=== PATIENT | male | born 1940 | race Caucasian/White ===

== ENCOUNTER 2017-12-17 17:45 | Inpatient (IN) | payer MEDICAID, MEDICARE ==
[~2017-12-17] VITALS: Ht 160 cm; Wt 90.3 kg
[~2017-12-17 17:45] MED LIST: LANTUS INSULIN SQ
[2017-12-17] MEDS ORDERED: DEXTROSE 50% 50 ML DISP.SYRIN ONE ×2 (17:55→18:47)
[2017-12-17] MEDS ORDERED: IV D5W-0.45% NS 1000 ML BAG IV ONE (18:15)
[2017-12-17] MEDS ORDERED: DEXTROSE 5% IV ONE (18:15)
--- NOTE | 2017-12-17 18:24 | NUR ---
upon arrival pt alert to name only, accu check was 42. pt rec'd1amp d50 iv and d5w 1/2ns infusing st 100 ml/hr, pt's daughter at the bedside. pt reconized daughter, denied any pain or discomfort.
[2017-12-17] MEDS ORDERED: DEXTROSE 50% 50 ML DISP.SYRIN IV ONE ×2 (18:30→19:00)
--- NOTE | 2017-12-17 18:50 | NUR ---
Pt's sister arrived and provided further information about pt's hx and home medications. Pt's record updated accordingly. Per sister pt was recently d/c from [facility] with dx of pneumonia.
--- NOTE | 2017-12-17 18:55 | NUR ---
pt to ct scan, 2nd accu check was 49, dr anaya was notified and 2nd amp d50 iv administered.
[2017-12-17] MEDS ORDERED: TRAMADOL (18:56)
[2017-12-17] MEDS ORDERED: FLOMAX PO (18:56)
[2017-12-17] MEDS ORDERED: FUROSEMIDE PO (18:56)
[2017-12-17] MEDS ORDERED: NORCO (18:56)
[2017-12-17] MEDS ORDERED: KEPPRA PO (18:56)
[2017-12-17] MEDS ORDERED: NOVOLOG INSULIN SQ (18:56)
[2017-12-17 19:08] LABS: BASOPHILS # (AUTO) 0.1 K/uL (0.0-8.0); BASOPHILS % (AUTO) 0.5 % (0.0-2.0); EOSINOPHILS % (AUTO) 0.3 % (0.0-7.0); HEMATOCRIT 24.8 % (36.7-47.1); LYMPHOCYTES # (AUTO) 1.2 K/uL (20.0-40.0); LYMPHOCYTES % (AUTO) 9.1 % (20.5-51.5); MEAN CORPUSCULAR HEMOGLOBIN 26.9 uug (23.8-33.4); MEAN CORPUSCULAR HGB CONC 32 g/dL (32.5-36.3); MEAN CORPUSCULAR VOLUME 83.3 fL (73.0-96.2); MONOCYTES # (AUTO) 1.4 K/uL (2.0-10.0); MONOCYTES % (AUTO) 10.3 % (0.0-11.0); NEUTROPHILS # (AUTO) 10.8 K/uL (1.8-8.9); NEUTROPHILS % (AUTO) 79.8 % (38.5-71.5); PLATELET COUNT (AUTO) 348 K/uL (152-348); RED BLOOD CELL COUNT(AUTO) 2.97 MIL/uL (4.06-5.63); WHITE BLOOD COUNT (AUTO) 13.6 K/uL (3.6-10.2)
--- NOTE | 2017-12-17 19:11 | NUR ---
Assumed care of patient. Patient in bed, VSS. No acute distress noted.
[2017-12-17 19:13] LABS: ETHANOL < 3 MG/DL (0-0)
--- NOTE | 2017-12-17 19:13 | NUR ---
sbar report to gracia rn , pt still at ct scan.
--- NOTE | 2017-12-17 19:19 | NUR ---
Patient back from CT. No acute distress at this time.
[2017-12-17 19:24] LABS: CARBON DIOXIDE 23 mmol/L (21-32); CHLORIDE 105 mmol/L (98-107); CREATININE 2.5 mg/dL (0.6-1.3); POTASSIUM 4.1 mmol/L (3.5-5.1); UREA NITROGEN, BLOOD 53 mg/dL (7-18)
[2017-12-17 19:26] LABS: GLUCOSE 45 mg/dL (74-106); THYROID STIMULATING HORMONE 2.727 mIU/mL (0.358-3.740)
[2017-12-17 19:28] LABS: ALANINE AMINOTRANSFERASE 58 U/L (16-63); ALKALINE PHOSPHATASE 133 U/L (50-136); ASPARTATE AMINOTRANSFERASE 45 U/L (15-37); BILIRUBIN,DIRECT 0.1 mg/dL (0.0-0.2); BILIRUBIN,TOTAL 0.2 mg/dL (0.2-1.0); TOTAL PROTEIN, SERUM 6.1 g/dL (6.4-8.2)
[2017-12-17 19:29] LABS: ACETAMINOPHEN < 2.0 ug/mL (10-30)
[2017-12-17] MEDS ORDERED: ALBUTEROL SULFATE 2.5 MG/3 ML NEBU NEB ONE (20:00)
--- NOTE | 2017-12-17 20:08 | NUR ---
Patient in bed, able to make needs known. Cleared for PO intake by ER MD. Patient pending inpatient admission at this time.
--- NOTE | 2017-12-17 20:11 | NUR ---
Panel call placed to [employer].
--- NOTE | 2017-12-17 20:13 | NUR ---
FELIPE HILL speaking with Dr Boucher at this time.
--- NOTE | 2017-12-17 20:15 | NUR ---
Patient tolerated PO intake at this time.
--- NOTE | 2017-12-17 20:28 | NUR ---
Report given to Vaishnavi JENKINS
--- NOTE | 2017-12-17 20:32 | NUR ---
Pt. admitted to Telemetry , under care of Dr. Boucher. Dx: Hypoglycemia Belongs List completed
[2017-12-17 20:45] VITALS: BP 201/100
--- NOTE | 2017-12-17 20:55 | NUR ---
NEW ADMIT FROM ER, ADMITTED FOR HYPOGLYCEMIA, AWAITING ADMIT ORDERS
[2017-12-17 21:00] VITALS: BP 185/94
[2017-12-17] MEDS ORDERED: MIRALAX 17 GM POWD.PACK PO PRN (23:00)
[2017-12-17] MEDS ORDERED: TRAMADOL HCL 50 MG TABLET PO PRN (23:00)
[2017-12-17] MEDS ORDERED: IV D5 1/2 NS 1000 ML 1,000 ML IV PRN (23:00)
[2017-12-17] MEDS: LEVOFLOXACIN 250MG /D5W 250 MG in PREMIXED 1 EACH IV SCH (23:00)
[2017-12-17] MEDS ORDERED: NITROGLYCERIN OINT 1 GM PACKET TP PRN (23:00)
[2017-12-17] MEDS ORDERED: ONDANSETRON 4 MG/2 ML VIAL IV PRN (23:00)
[2017-12-17] MEDS ORDERED: INSULIN REGULAR, HUMAN 300 UNIT/3 ML VIAL SQ PRN (23:30)
[2017-12-17] MEDS ORDERED: DEXTROSE 50% 50 ML DISP.SYRIN IV PRN (23:30)
[2017-12-18] VITALS (11 sets, daily range): BP systolic 133–208; BP diastolic 64–94
[2017-12-18] MEDS: AMLODIPINE 5 MG TABLET PO SCH ×3 (00:04→21:10)
[2017-12-18] MEDS: TAMSULOSIN HCL 0.4 MG CAP.SR.24H PO SCH ×2 (00:04→21:10)
[2017-12-18] MEDS: hydrALAZINE HCL 50 MG TABLET PO SCH ×3 (00:05→21:12)
[2017-12-18] MEDS: BLOOD SUGAR DIAGNOSTIC 1 EACH STRIP VI SCH ×9 (00:11→23:09)
[2017-12-18] MEDS ORDERED: ALBUTEROL SULFATE 2.5 MG/3 ML NEBU ONE (00:22)
[2017-12-18] MEDS ORDERED: LEVOFLOXACIN 250MG /D5W 50 ML IV ONE (00:22)
[2017-12-18] MEDS ORDERED: IPRATROPIUM BROMIDE 0.5 MG/2.5 ML NEBU ONE (00:22)
[2017-12-18] MEDS: IPRATROPIUM BROMIDE 0.5 MG/2.5 ML NEBU NEB PRN ×2 (00:46→08:12)
[2017-12-18] MEDS: ALBUTEROL SULFATE 2.5 MG/3 ML NEBU NEB PRN ×2 (00:46→08:12)
--- NOTE | 2017-12-18 01:00 | NUR ---
BP ELEVATED AT 208/94, BP MEDS WERE GIVEN ORDERED. BP NOW DOWN TO 170/87, WILL CONTINUE TO MONITOR BP
[2017-12-18] MEDS: LORAZEPAM 2 MG/1 ML VIAL IV PRN ×2 (04:12→16:25)
[2017-12-18] MEDS ORDERED: CLONIDINE HCL 0.1 MG TABLET PO PRN (04:15)
[2017-12-18] MEDS: MORPHINE SULFATE 4 MG/1 ML DISP.SYRIN IV PRN ×3 (04:21→16:34)
--- NOTE | 2017-12-18 05:49 | NUR ---
PATIENT'S BP CONTINUES TO BE ELEVATED. MD HARDY GAVE A PRN ORDER FOR CLONIDINE. BP WAS 183/92 WENT DOWN TO 179/97 AFTER PRN MEDS. CALLED DR HARDY REGARDING UNCONTROLLED BP. AWAITING FOR A RESPONSE
[2017-12-18] MEDS ORDERED: methylPREDNISolone SOD SUCC 40 MG/ML VIAL IV SCH (06:00)
[2017-12-18] MEDS: PANTOPRAZOLE SODIUM 40 MG TABLET.DR PO SCH (06:17)
[2017-12-18 06:50] LABS: BASOPHILS % (AUTO) 0.4 % (0.0-2.0); EOSINOPHILS # (AUTO) 0.2 K/uL (0.0-0.7); EOSINOPHILS % (AUTO) 1.5 % (0.0-7.0); HEMATOCRIT 23.9 % (36.7-47.1); HEMOGLOBIN 7.6 g/dL (12.5-16.3); LYMPHOCYTES % (AUTO) 16.8 % (20.5-51.5); MEAN CORPUSCULAR HEMOGLOBIN 26.3 uug (23.8-33.4); MEAN CORPUSCULAR HGB CONC 32 g/dL (32.5-36.3); MONOCYTES # (AUTO) 1.2 K/uL (2.0-10.0); MONOCYTES % (AUTO) 9.8 % (0.0-11.0); NEUTROPHILS # (AUTO) 8.4 K/uL (1.8-8.9); NEUTROPHILS % (AUTO) 71.5 % (38.5-71.5); PLATELET COUNT (AUTO) 324 K/uL (152-348); RED BLOOD CELL COUNT(AUTO) 2.88 MIL/uL (4.06-5.63); WHITE BLOOD COUNT (AUTO) 11.8 K/uL (3.6-10.2)
--- NOTE | 2017-12-18 06:59 | NUR ---
MD HARDY GAVE NEW ORDER FOR CLONIDINE ONCE, NEW ORDERS ENDORSED TO NEXT SHIFT
[2017-12-18] MEDS ORDERED: CLONIDINE HCL 0.1 MG TABLET PO ONE (07:00)
--- NOTE | 2017-12-18 07:00 | NUR ---
Received report from shift production supervisor nurse, patient in bed, minimally responsive, BP elevated, and Dr. Corado had just returned a all for one time order or clonidine. Will continue to monitor blood pressure. Patient is in bed, bed in low position, side rails up x2. bed alarm on.
[2017-12-18 07:59] LABS: IRON, SERUM 40 ug/dL (50-175)
[2017-12-18 08:01] LABS: ALANINE AMINOTRANSFERASE 47 U/L (16-63); ALKALINE PHOSPHATASE 115 U/L (50-136); ASPARTATE AMINOTRANSFERASE 33 U/L (15-37); BILIRUBIN,TOTAL 0.2 mg/dL (0.2-1.0); CARBON DIOXIDE 23 mmol/L (21-32); CHLORIDE 105 mmol/L (98-107); CHOLESTEROL 149 mg/dL (<200); CREATININE 2.5 mg/dL (0.6-1.3); GLUCOSE 105 mg/dL (74-106); HDL CHOLESTEROL 65 mg/dL (40-60); POTASSIUM 4.7 mmol/L (3.5-5.1); TOTAL PROTEIN, SERUM 5.6 g/dL (6.4-8.2); TRIGLYCERIDES 90 MG/DL (30-150); UREA NITROGEN, BLOOD 50 mg/dL (7-18)
[2017-12-18 08:20] LABS: MAGNESIUM 1.2 mg/dL (1.8-2.4)
--- NOTE | 2017-12-18 08:28 | NUR ---
CONTACTED DR GEORGE [facility]IA [facility] FOR CRITICAL LAB RESULTS AWAITING CALL BACK
[2017-12-18] MEDS: LEVETIRACETAM IV 500 MG in IV DEXTROSE 5% 100 ML IV SCH ×2 (08:34→21:12)
[2017-12-18] MEDS ORDERED: LEVE500T9 PO (10:42)
[2017-12-18] MEDS ORDERED: INSU3INS6 SQ (10:42)
[2017-12-18] MEDS ORDERED: TAMS-3 PO (10:42)
[2017-12-18] MEDS ORDERED: FURO-152 PO (10:42)
[2017-12-18] MEDS ORDERED: LEVO500T90 PO (10:44)
[2017-12-18] MEDS ORDERED: CLON0.1T PO (10:44)
[2017-12-18] MEDS ORDERED: GABA-534 PO (10:44)
[2017-12-18] MEDS ORDERED: HYDR100T27 PO (10:44)
[2017-12-18] MEDS ORDERED: METO50TA16 PO (10:44)
[2017-12-18] MEDS ORDERED: PANT40TA2 PO (10:44)
[2017-12-18] MEDS: MAGNESIUM SULFATE/D5W 100 ML IV SCH ×2 (10:57→11:47)
[2017-12-18] MEDS ORDERED: FUROSEMIDE 20 MG/2 ML VIAL IV SCH (11:15)
[2017-12-18 11:26] LABS: ABG BASE EXCESS -5.9 mmol/L; ABG HCO3 18.6 mmol/L; ABG PCO2 32.6 mmHg (35.0-45.0); ABG PH 7.375 (7.350-7.450); ABG PO2 100.3 mmHg (75.0-100.0); ABG SITE RIGHT RADIAL; ABG TOTAL HEMOGLOBIN 8.2 G/dL (13.5-18.0); COHb 1.2 % (0.5-1.5); MetHb 0.4 % (0.0-1.5); O2Hb 96.3 % (94.0-97.0); VENT MODE Nasal Cannula
[2017-12-18] MEDS ORDERED: TRAM50TA2 PO (11:39)
[2017-12-18] MEDS ORDERED: MONT10TA25 PO (11:40)
[2017-12-18] MEDS ORDERED: HYDR-552 PO (11:42)
[2017-12-18] MEDS ORDERED: BUDE10.2 INH (11:43)
[2017-12-18] MEDS ORDERED: INSU100C4 SQ (11:45)
[2017-12-18] MEDS ORDERED: CLONIDINE HCL 0.1 MG TABLET PO SCH (13:00)
[2017-12-18 13:13] LABS: *BILIRUBIN,URIN NEGATIVE (NEGATIVE); *BLOOD, URINE 2+ (NEGATIVE); *CLARITY,URINE CLEAR (CLEAR); *COLOR,URINE YELLOW (YELLOW); *KETONES,URINE NEGATIVE (NEGATIVE); *UROBILINOGEN,URINE 0.2 E.U./dl (NORMAL); LEUKOCYTE ESTERASE ,URINE NEGATIVE (NEGATIVE); NITRITE, URINE NEGATIVE (NEGATIVE); UGLUCOSE TRACE (NEGATIVE)
[2017-12-18 13:23] LABS: *CREATININE,URINE 35.5 mg/dL (30-125)
[2017-12-18 13:28] LABS: *PROTEIN,URINE 3+ (NEGATIVE)
[2017-12-18 13:29] LABS: RBC,URINE TNTC /HPF (0-3)
[2017-12-18 13:30] LABS: BACTERIA,URINE NONE SEEN /HPF (NONE SEEN); SQUAMOUS EPITHELIAL CELL,UR FEW /HPF (NONE SEEN); TRANSITIONAL EPI CELLS,URINE FEW /LPF (NONE SEEN)
[2017-12-18 13:44] LABS: *OCCULT BLOOD STOOL POSITIVE (NEGATIVE)
--- NOTE | 2017-12-18 13:46 | NUR ---
TEXTED DR. HSU FOR MRI APPROVAL.
[2017-12-18] MEDS ORDERED: hydrALAZINE HCL 50 MG TABLET PO SCH (14:00)
[2017-12-18] MEDS: CLONIDINE HCL 0.1 MG TABLET PO SCH ×2 (14:06→22:57)
[2017-12-18] MEDS: GABAPENTIN 300 MG CAPSULE PO SCH ×2 (14:06→16:25)
[2017-12-18] MEDS ORDERED: METOPROLOL TARTRATE 50 MG TABLET PO SCH (17:00)
--- NOTE | 2017-12-18 17:00 | NUR ---
Contacted Amy Maxwell NP about glucose level, and received order for insulin sliding scale and q6hr glucose checks.
[2017-12-18] MEDS ORDERED: DEXTROSE 50% 50 ML DISP.SYRIN IV PRN (17:30)
[2017-12-18] MEDS: INSULIN REGULAR, HUMAN 300 UNIT/3 ML VIAL SQ PRN (18:13)
[2017-12-18] MEDS: ALBUTEROL SULFATE 2.5 MG/3 ML NEBU NEB SCH (19:21)
[2017-12-18] MEDS: IPRATROPIUM BROMIDE 0.5 MG/2.5 ML NEBU NEB SCH (19:22)
--- NOTE | 2017-12-18 19:30 | NUR ---
PT RECEIVED IN BED, AWAKE. DAUGHTER AT BEDSIDE. A/OX2. URDU SPEAKING, BUT ABLE TO MAKE NEEDS KNOWN. V/S STABLE. IN NO ACUTE DISTRESS. NO C/O PAIN AT THIS TIME. IV INTACT AND PATENT, HEPLOCKED. ON 4LNC, PT NOTED TO BE HAVING DIFFICULTY BREATHING. SOB UPON INHALATION. STRIDOR HEARD ON AUSCULTATION. RESPIRATORY CONFIRMED, DIRECTOR OF FEDERAL SALES AMELIA SANTANA NOTIFIED. PT SEEN WITH LOW GRADE FEVER 99.4F. HUIZAR INTACT AND PATENT. COOLING MEASURES INITIATED, BLANKETS REMOVED, ROOM TEMP DECREASED. HOB ELEVATED. SAFETY MEASURES IMPLEMENTED. BED ALARM SET. CALL LIGHT WITHIN REACH
[2017-12-18] MEDS ORDERED: RACEPINEPHRINE HCL 2.25% 0.5 ML NEBU NEB PRN (20:00)
[2017-12-18] MEDS: DOCUSATE SODIUM 100 MG CAPSULE PO SCH (21:09)
[2017-12-18] MEDS: METOPROLOL TARTRATE 50 MG TABLET PO SCH (21:11)
[2017-12-18] MEDS: ACETAMINOPHEN 325 MG TABLET PO PRN (21:12)
[2017-12-18] MEDS: methylPREDNISolone SOD SUCC 40 MG/ML VIAL IV SCH (22:56)
[2017-12-18] MEDS: LEVOFLOXACIN 250MG /D5W 250 MG in PREMIXED 1 EACH IV SCH (22:59)
[2017-12-18] MEDS ORDERED: RACEPINEPHRINE HCL 2.25% 0.5 ML NEBU ONE (23:10)
--- NOTE | 2017-12-18 23:30 | NUR ---
PT RECEIVED RACEPINEPHRINE TX, ORDERED. PT LUNG SOUNDS AUSCULTATED, MILD CRACKLES NOTED. PT USE OF LESS ACCESSORY MUSCLES AT THIS TIME. IN STABLE CONDITION. WILL CONT TO MONITOR.
[2017-12-19] MEDS: ALBUTEROL SULFATE 2.5 MG/3 ML NEBU NEB SCH ×4 (01:09→19:40)
[2017-12-19] MEDS: IPRATROPIUM BROMIDE 0.5 MG/2.5 ML NEBU NEB SCH ×4 (01:09→19:39)
[2017-12-19] MEDS: LORAZEPAM 2 MG/1 ML VIAL IV PRN (01:30)
--- NOTE | 2017-12-19 01:34 | NUR ---
PT INCREASINGLY AGGRESSIVE, ANGRY AND YELLING AT DIRECTOR COMPLIANCE AND RESPIRATORY THERAPIST. ATTEMPTING TO HIT. ATIVAN ADMINISTERED ORDERED. IN STABLE CONDITION. WILL CONT TO MONITOR.
[2017-12-19] MEDS: BLOOD SUGAR DIAGNOSTIC 1 EACH STRIP VI SCH ×6 (04:26→20:35)
--- NOTE | 2017-12-19 04:30 | NUR ---
PT BS 209, IN NO ACUTE DISTRESS. NO ISS PER MD ORDER. WILL CONT TO MONITOR.
[2017-12-19] MEDS: CLONIDINE HCL 0.1 MG TABLET PO SCH ×3 (05:13→21:38)
[2017-12-19] MEDS: methylPREDNISolone SOD SUCC 40 MG/ML VIAL IV SCH ×3 (05:13→21:39)
[2017-12-19] MEDS: INSULIN REGULAR, HUMAN 300 UNIT/3 ML VIAL SQ PRN ×4 (05:16→20:37)
[2017-12-19 05:19] VITALS: BP 141/76
--- NOTE | 2017-12-19 06:16 | NUR ---
END OF SHIFT NOTES. PT SLEPT INTERMITTENTLY THROUGHOUT SHIFT. V/S WNL. IN NO ACUTE DISTRESS. CONT TO SHOW SOME AGITATION WHEN AWAKE. ATTEMPTING TO GET OUT OF BED AND CONFUSED. PT CONT ON 4LNC. TOLERATED BREATHING TX WELL. AT REST PT SHOWS SHALLOW BREATHING BUT STABLE. BLOOD SUGAR CONTROLLED. ALL IV ABX INFUSED. HUIZAR INTACT AND PATENT, DRAINING WELL. HOB ELEVATED. ALL NEEDS ATTENDED. SAFETY MAINTAINED. CALL LIGHT WITHIN REACH.
[2017-12-19] MEDS: PANTOPRAZOLE SODIUM 40 MG TABLET.DR PO SCH (06:25)
[2017-12-19 07:06] LABS: BASOPHILS % (AUTO) 0.1 % (0.0-2.0); HEMATOCRIT 23.1 % (36.7-47.1); HEMOGLOBIN 7.5 g/dL (12.5-16.3); LYMPHOCYTES # (AUTO) 0.4 K/uL (20.0-40.0); LYMPHOCYTES % (AUTO) 3.4 % (20.5-51.5); MEAN CORPUSCULAR HEMOGLOBIN 26.7 uug (23.8-33.4); MEAN CORPUSCULAR HGB CONC 32 g/dL (32.5-36.3); MEAN CORPUSCULAR VOLUME 82.5 fL (73.0-96.2); MONOCYTES # (AUTO) 0.1 K/uL (2.0-10.0); MONOCYTES % (AUTO) 0.8 % (0.0-11.0); NEUTROPHILS # (AUTO) 12.2 K/uL (1.8-8.9); NEUTROPHILS % (AUTO) 95.7 % (38.5-71.5); PLATELET COUNT (AUTO) 300 K/uL (152-348); RED BLOOD CELL COUNT(AUTO) 2.79 MIL/uL (4.06-5.63); WHITE BLOOD COUNT (AUTO) 12.8 K/uL (3.6-10.2)
[2017-12-19 07:14] LABS: ALANINE AMINOTRANSFERASE 37 U/L (16-63); ALKALINE PHOSPHATASE 104 U/L (50-136); ASPARTATE AMINOTRANSFERASE 20 U/L (15-37); BILIRUBIN,TOTAL 0.1 mg/dL (0.2-1.0); CARBON DIOXIDE 22 mmol/L (21-32); CHLORIDE 103 mmol/L (98-107); GLUCOSE 247 mg/dL (74-106); MAGNESIUM 1.7 mg/dL (1.8-2.4); PHOSPHOROUS 5.2 mg/dL (2.5-4.9); POTASSIUM 5.7 mmol/L (3.5-5.1); TOTAL PROTEIN, SERUM 5.5 g/dL (6.4-8.2); UREA NITROGEN, BLOOD 54 mg/dL (7-18)
[2017-12-19 08:07] LABS: ABG BASE EXCESS -4.6 mmol/L; ABG HCO3 20.3 mmol/L; ABG PCO2 36.4 mmHg (35.0-45.0); ABG PH 7.364 (7.350-7.450); ABG PO2 97.9 mmHg (75.0-100.0); ABG SITE RIGHT RADIAL; ABG TOTAL HEMOGLOBIN 8.5 G/dL (13.5-18.0); COHb 1.6 % (0.5-1.5); MetHb 0.9 % (0.0-1.5); O2Hb 94.8 % (94.0-97.0); VENT MODE Nasal Cannula
[2017-12-19] MEDS: AMLODIPINE 5 MG TABLET PO SCH ×2 (08:12→20:05)
[2017-12-19] MEDS: GABAPENTIN 300 MG CAPSULE PO SCH ×3 (08:12→17:03)
[2017-12-19] MEDS: hydrALAZINE HCL 50 MG TABLET PO SCH ×2 (08:12→20:06)
[2017-12-19] MEDS: METOPROLOL TARTRATE 50 MG TABLET PO SCH ×2 (08:13→20:06)
[2017-12-19 08:55] LABS: BASOPHILS % (MANUAL) 1 % (0-2); LYMPHOCYTES % (MANUAL) 4 % (20-40); NEUTROPHILS % (MANUAL) 95 % (42-75)
[2017-12-19] MEDS ORDERED: PANTOPRAZOLE SODIUM 40 MG TABLET.DR PO SCH (09:00)
[2017-12-19] MEDS ORDERED: TAMSULOSIN HCL 0.4 MG CAP.SR.24H PO SCH (09:00)
[2017-12-19] MEDS: LEVETIRACETAM IV 500 MG in IV DEXTROSE 5% 100 ML IV SCH (09:31)
[2017-12-19] MEDS ORDERED: MAGNESIUM SULFATE/D5W 100 ML IV SCH ×2 (10:45→22:30)
[2017-12-19] MEDS ORDERED: DEXTROSE 50% 50 ML DISP.SYRIN IV PRN (11:30)
[2017-12-19 11:38] VITALS: BP 137/68
[2017-12-19 14:00] VITALS: BP 143/77
[2017-12-19 14:24] LABS: CARBON DIOXIDE 22 mmol/L (21-32); CHLORIDE 102 mmol/L (98-107); GLUCOSE 204 mg/dL (74-106); POTASSIUM 5.3 mmol/L (3.5-5.1); UREA NITROGEN, BLOOD 60 mg/dL (7-18)
[2017-12-19] MEDS: INSULIN REGULAR, HUMAN 300 UNIT/3 ML VIAL SQ SCH (17:02)
--- NOTE | 2017-12-19 18:14 | NUR ---
PT OBSERVED RESTING IN BED, PT CALM, AOX1, NO SIGNS OF RESPIRATORY DISTRESS. PT REPOSITIONED Q2HRS, PT TOLERATING MEDICATION. 2L NC O2 SAT 97-98%. CONTINUE TO MONITOR PT. US GUIDED THORACENTESIS CONSENT NOT SIGNED, PT FAMILY MEMBER NOT DECIDED TO CONSENT TO PROCEDURE AT THIS TIME WILL FOLLOW UP WITH IN MORNING. CONTINUE TO MONITOR PT.
--- NOTE | 2017-12-19 19:19 | NUR ---
PT ASLEEP IN BED. IN NO ACUTE DISTRESS. O2 AT 4LPM VIA NC IN PLACE. HUIZAR CATH INTACT AND DRAINING VIA GRAVITY, WITH CLEAR YELLOW URINE ON URINARY BAG. IV SITE INTACT AND PATENT. SAFETY MEASURE INITIATED AND CALL CLARK WITHIN REACHED.
[2017-12-19] MEDS: MORPHINE SULFATE 4 MG/1 ML DISP.SYRIN IV PRN (19:45)
[2017-12-19] MEDS: TAMSULOSIN HCL 0.4 MG CAP.SR.24H PO SCH (20:06)
[2017-12-19] MEDS: DOCUSATE SODIUM 100 MG CAPSULE PO SCH (20:06)
[2017-12-19] MEDS: LEVETIRACETAM 500 MG TABLET PO SCH (20:06)
[2017-12-19 20:18] VITALS: BP 141/64
[2017-12-19] MEDS ORDERED: INSULIN GLARGINE,HUM 300 UNITS/3 ML CARTRIDGE SQ SCH (21:00)
[2017-12-19] MEDS: LEVOFLOXACIN 250MG /D5W 250 MG in PREMIXED 1 EACH IV SCH (22:01)
[2017-12-19] MEDS ORDERED: POTASSIUM CHLORIDE 50 ML IV SCH (22:30)
[2017-12-20] MEDS: LORAZEPAM 2 MG/1 ML VIAL IV PRN ×2 (00:09→23:26)
[2017-12-20] MEDS: IPRATROPIUM BROMIDE 0.5 MG/2.5 ML NEBU NEB SCH ×4 (00:36→19:22)
[2017-12-20] MEDS: ALBUTEROL SULFATE 2.5 MG/3 ML NEBU NEB SCH ×4 (00:36→19:22)
--- NOTE | 2017-12-20 00:36 | NUR ---
Pt asleep. No respiratory distress noted. HHN tx not given. RN Zeny notified.
[2017-12-20] MEDS: MORPHINE SULFATE 4 MG/1 ML DISP.SYRIN IV PRN (05:03)
[2017-12-20] MEDS: methylPREDNISolone SOD SUCC 40 MG/ML VIAL IV SCH ×3 (05:38→20:46)
[2017-12-20] MEDS: PANTOPRAZOLE SODIUM 40 MG TABLET.DR PO SCH (05:39)
[2017-12-20] MEDS: CLONIDINE HCL 0.1 MG TABLET PO SCH ×3 (05:39→22:23)
--- NOTE | 2017-12-20 06:03 | NUR ---
AOx 1-2. Thai speaking only. Not in acute distress. Denies any SOB. O2 at 4LPM via NC in place. O2 sat at 99%. IV site on right hand intact and patent. Denies any pain at this time. FC intact and draining via gravity. Safety measure maintained and call pratt within reach.
[2017-12-20 06:08] LABS: ALANINE AMINOTRANSFERASE 34 U/L (16-63); ALKALINE PHOSPHATASE 89 U/L (50-136); ASPARTATE AMINOTRANSFERASE 17 U/L (15-37); BILIRUBIN,TOTAL 0.1 mg/dL (0.2-1.0); CARBON DIOXIDE 24 mmol/L (21-32); CHLORIDE 104 mmol/L (98-107); GLUCOSE 206 mg/dL (74-106); MAGNESIUM 1.9 mg/dL (1.8-2.4); PHOSPHOROUS 5.2 mg/dL (2.5-4.9); POTASSIUM 5.4 mmol/L (3.5-5.1); TOTAL PROTEIN, SERUM 5.3 g/dL (6.4-8.2); UREA NITROGEN, BLOOD 62 mg/dL (7-18)
[2017-12-20 06:21] LABS: BASOPHILS % (AUTO) 0.1 % (0.0-2.0); HEMATOCRIT 23.4 % (36.7-47.1); HEMOGLOBIN 7.5 g/dL (12.5-16.3); LYMPHOCYTES # (AUTO) 0.5 K/uL (20.0-40.0); LYMPHOCYTES % (AUTO) 2.9 % (20.5-51.5); MEAN CORPUSCULAR HEMOGLOBIN 26.5 uug (23.8-33.4); MEAN CORPUSCULAR HGB CONC 32 g/dL (32.5-36.3); MEAN CORPUSCULAR VOLUME 82.6 fL (73.0-96.2); MONOCYTES # (AUTO) 0.3 K/uL (2.0-10.0); MONOCYTES % (AUTO) 1.9 % (0.0-11.0); NEUTROPHILS # (AUTO) 16.1 K/uL (1.8-8.9); NEUTROPHILS % (AUTO) 95.1 % (38.5-71.5); PLATELET COUNT (AUTO) 267 K/uL (152-348); RED BLOOD CELL COUNT(AUTO) 2.83 MIL/uL (4.06-5.63)
[2017-12-20 06:26] VITALS: BP 131/64
[2017-12-20] MEDS: BLOOD SUGAR DIAGNOSTIC 1 EACH STRIP VI SCH ×4 (06:33→20:56)
[2017-12-20] MEDS: INSULIN REGULAR, HUMAN 300 UNIT/3 ML VIAL SQ SCH ×3 (08:11→17:16)
[2017-12-20] MEDS: LEVETIRACETAM 500 MG TABLET PO SCH ×2 (08:19→20:47)
[2017-12-20] MEDS: hydrALAZINE HCL 50 MG TABLET PO SCH ×2 (08:19→20:46)
[2017-12-20] MEDS: METOPROLOL TARTRATE 50 MG TABLET PO SCH ×2 (08:20→20:48)
[2017-12-20] MEDS: AMLODIPINE 5 MG TABLET PO SCH ×2 (08:20→20:48)
[2017-12-20] MEDS: GABAPENTIN 300 MG CAPSULE PO SCH ×3 (08:20→16:46)
--- NOTE | 2017-12-20 10:05 | NUR ---
Scheduled us humera at 3pm today with dr barraza.
[2017-12-20] MEDS ORDERED: SODIUM POLYSTYRENE SULFONATE 15 G/60 ML LIQUID UDC PO ONE (10:15)
[2017-12-20] MEDS ORDERED: FUROSEMIDE 40 MG/4 ML VIAL IV ONE (10:15)
[2017-12-20 11:25] VITALS: BP 124/59
[2017-12-20] MEDS ORDERED: DEXTROSE 50% 50 ML DISP.SYRIN IV PRN (11:30)
[2017-12-20] MEDS: INSULIN REGULAR, HUMAN 300 UNIT/3 ML VIAL SQ PRN ×2 (12:16→16:52)
[2017-12-20 15:02] VITALS: BP 118/62
--- NOTE | 2017-12-20 15:09 | NUR ---
ULTRASOUND GUIDED THORACENTESIS OF THE RIGHT SIDE PROCEDURE CURRENTLY ONGOING AT BEDSIDE, WELL TOLERATED. WILL CONTINUE TO MONITOR
--- NOTE | 2017-12-20 15:33 | NUR ---
RECEIVED PATIENT ON BED, AWAKE, A AND O X 1-2, PUERTO RICAN SPEAKING. NO ACUTE DISTRESS NOTED. WITH IV ACCESS ON THE RIGHT HSND # 22 TKO. FC INTACT AND DRAINING CLEAR YELLOW URINE. NEED CONSENT FOR ULTRASOUND GUIDED THORACENTESIS RIGHT SIDE, WILL FOLLOW UP. ON O2 4LPM VIA NC, WELL TOLERATED. INDEPENDENT WITH FEEDING AND BED MOBILITY, ABLE TO GET UP WITH ASSIST. SAFETY AND FALL PRECS OBSERVED AT ALL TIMES. NO COMPLAINTS OF PAIN AND DISCOMFORT AT THIS TIME. CALL LIGHT WITHIN REACH, WILL CONTINUE TO MONITOR CLOSELY. Addendum: 12/20/17 at 1537 by NUHA BELL RN LATE ENTRY FOR 0700
--- NOTE | 2017-12-20 19:45 | NUR ---
RECEIVED IN BED ALERT ORIENTED SPEAK JAPANESE DAUGHTER AT BEDSIDE, COMPLAIN OF GEN BODY PAIN WILL MEDICATE FOR PAIN, HUIZAR CATH PATENT DRAINING WITH YELLOW COLOR URINE IN MODERATE AMOUNT CONT TO MONITOR. NO S/S OF DISTRESS, S/P THORACENTESIS, DRAINAGE SENT TO LAB ORDERED. CONT TO MONITOR. PATIENT NOTED WITH EPISODES RESTLESSNESS, DAUGHTER ABLE TO CALM PATIENT DOWN, CONT TO MONITOR.
[2017-12-20 20:00] VITALS: BP 150/66
[2017-12-20] MEDS: TRAMADOL HCL 50 MG TABLET PO PRN (20:32)
[2017-12-20] MEDS: TAMSULOSIN HCL 0.4 MG CAP.SR.24H PO SCH (20:47)
[2017-12-20] MEDS: DOCUSATE SODIUM 100 MG CAPSULE PO SCH (20:47)
[2017-12-20] MEDS: INSULIN REGULAR, HUMAN 300 UNITS/3 ML VIAL SQ PRN (21:01)
[2017-12-20] MEDS: INSULIN GLARGINE,HUM 300 UNITS/3 ML CARTRIDGE SQ SCH (21:05)
[2017-12-20] MEDS: LEVOFLOXACIN 250MG /D5W 250 MG in PREMIXED 1 EACH IV SCH (22:12)
[2017-12-20] MEDS: ACETAMINOPHEN 325 MG TABLET PO PRN (22:23)
[2017-12-21] VITALS (8 sets, daily range): BP systolic 124–149; BP diastolic 59–67
[2017-12-21] MEDS: ALBUTEROL SULFATE 2.5 MG/3 ML NEBU NEB SCH ×4 (00:39→19:19)
[2017-12-21] MEDS: IPRATROPIUM BROMIDE 0.5 MG/2.5 ML NEBU NEB SCH ×4 (00:39→19:19)
[2017-12-21] MEDS: MORPHINE SULFATE 4 MG/1 ML DISP.SYRIN IV PRN ×2 (02:59→14:57)
[2017-12-21] MEDS: CLONIDINE HCL 0.1 MG TABLET PO SCH ×3 (06:01→22:23)
[2017-12-21] MEDS: PANTOPRAZOLE SODIUM 40 MG TABLET.DR PO SCH (06:01)
[2017-12-21] MEDS: BLOOD SUGAR DIAGNOSTIC 1 EACH STRIP VI SCH ×4 (06:22→21:31)
--- NOTE | 2017-12-21 06:51 | NUR ---
PATIENT ALERT ORIENTED, SPEAK BELARUSIAN, ABLE TO MAKE NEEDS KNOWN THRU PBX WIRE CHIEF, HUIZAR CATH PATENT DRAINING WITH YELLOW COLOR URINE IN MODERATE AMOUNT, CONT ON PAIN MANAGEMENT, WITH EPISODE OF ANXIETY TRIES TO GET OUT OF BED WITHOUT CALLING FOR HELP, WITH EPISODE OF AGITATIONS RESIST CARE, GIVEN ATIVAN ONE TIME ONLY WITH HELP, NO ADVERSE REACTION NOTED, BP STABLE. NO S/S OF HYPOGLYCEMIA NOTED, CONT TO MONITOR.
--- NOTE | 2017-12-21 07:44 | NUR ---
Sleeping, comfortable. O2 at 4L/NC humidified.
[2017-12-21 08:11] LABS: BASOPHILS % (AUTO) 0.1 % (0.0-2.0); HEMATOCRIT 24.5 % (36.7-47.1); HEMOGLOBIN 7.8 g/dL (12.5-16.3); LYMPHOCYTES # (AUTO) 0.5 K/uL (20.0-40.0); LYMPHOCYTES % (AUTO) 2.5 % (20.5-51.5); MEAN CORPUSCULAR HEMOGLOBIN 26.1 uug (23.8-33.4); MEAN CORPUSCULAR HGB CONC 32 g/dL (32.5-36.3); MEAN CORPUSCULAR VOLUME 82.6 fL (73.0-96.2); MONOCYTES # (AUTO) 0.6 K/uL (2.0-10.0); MONOCYTES % (AUTO) 2.9 % (0.0-11.0); NEUTROPHILS # (AUTO) 20.7 K/uL (1.8-8.9); NEUTROPHILS % (AUTO) 94.5 % (38.5-71.5); PLATELET COUNT (AUTO) 276 K/uL (152-348); RED BLOOD CELL COUNT(AUTO) 2.97 MIL/uL (4.06-5.63); WHITE BLOOD COUNT (AUTO) 21.9 K/uL (3.6-10.2)
[2017-12-21] MEDS: methylPREDNISolone SOD SUCC 40 MG/ML VIAL IV SCH ×2 (08:47→21:28)
[2017-12-21] MEDS: hydrALAZINE HCL 50 MG TABLET PO SCH ×2 (08:47→20:36)
[2017-12-21] MEDS: LEVETIRACETAM 500 MG TABLET PO SCH ×2 (08:47→20:27)
[2017-12-21] MEDS: AMLODIPINE 5 MG TABLET PO SCH ×2 (08:48→20:36)
[2017-12-21] MEDS: METOPROLOL TARTRATE 50 MG TABLET PO SCH ×2 (08:48→20:37)
[2017-12-21] MEDS: GABAPENTIN 300 MG CAPSULE PO SCH ×2 (08:48→12:44)
[2017-12-21] MEDS: TRAMADOL HCL 50 MG TABLET PO PRN ×2 (08:49→20:42)
[2017-12-21] MEDS: INSULIN REGULAR, HUMAN 300 UNIT/3 ML VIAL SQ SCH ×4 (08:51→21:35)
[2017-12-21] MEDS: INSULIN REGULAR, HUMAN 300 UNIT/3 ML VIAL SQ PRN ×3 (08:52→17:39)
[2017-12-21 08:58] LABS: ALANINE AMINOTRANSFERASE 31 U/L (16-63); ALKALINE PHOSPHATASE 90 U/L (50-136); ASPARTATE AMINOTRANSFERASE 20 U/L (15-37); BILIRUBIN,TOTAL 0.1 mg/dL (0.2-1.0); CARBON DIOXIDE 25 mmol/L (21-32); CHLORIDE 104 mmol/L (98-107); CREATININE 3.2 mg/dL (0.6-1.3); GLUCOSE 190 mg/dL (74-106); MAGNESIUM 1.6 mg/dL (1.8-2.4); PHOSPHOROUS 5.6 mg/dL (2.5-4.9); POTASSIUM 4.9 mmol/L (3.5-5.1); TOTAL PROTEIN, SERUM 5.5 g/dL (6.4-8.2); UREA NITROGEN, BLOOD 78 mg/dL (7-18)
--- NOTE | 2017-12-21 11:00 | NUR ---
Assisted out of bed by PT, ambulated in the hallway, tolerated
--- NOTE | 2017-12-21 13:00 | NUR ---
Son at bedside, informed of blood transfusion order
[2017-12-21] MEDS ORDERED: MAGNESIUM SULFATE/D5W 100 ML IV SCH (14:30)
--- NOTE | 2017-12-21 18:35 | NUR ---
Hgb 7.8, HCt 24.5, 1 unit of PRBC started. Will endorse for further care.
--- NOTE | 2017-12-21 19:40 | NUR ---
Received patient in bed on semi padilla's position eating dinner and with family at bedside. Patient is awake, alert,and verbally responsive in Mexican. With on going BT of O- @ 100cc/hr infusing well on RA. Denies of any BT reactions as of the moment, Vital signs taken and recorded. Pertinent assessment done. Call light in reach. Will continue to monitor the patient.
[2017-12-21] MEDS: DOCUSATE SODIUM 100 MG CAPSULE PO SCH (20:25)
[2017-12-21] MEDS: TAMSULOSIN HCL 0.4 MG CAP.SR.24H PO SCH (20:26)
[2017-12-21] MEDS: INSULIN GLARGINE,HUM 300 UNITS/3 ML CARTRIDGE SQ SCH (21:38)
[2017-12-22] MEDS: IPRATROPIUM BROMIDE 0.5 MG/2.5 ML NEBU NEB SCH ×4 (00:41→19:28)
[2017-12-22] MEDS: ALBUTEROL SULFATE 2.5 MG/3 ML NEBU NEB SCH ×4 (00:41→19:28)
[2017-12-22] MEDS: CLONIDINE HCL 0.1 MG TABLET PO SCH ×3 (05:26→21:49)
[2017-12-22 05:32] VITALS: BP 132/59
[2017-12-22] MEDS: PANTOPRAZOLE SODIUM 40 MG TABLET.DR PO SCH (06:09)
[2017-12-22] MEDS: BLOOD SUGAR DIAGNOSTIC 1 EACH STRIP VI SCH ×4 (06:12→20:49)
--- NOTE | 2017-12-22 06:39 | NUR ---
Patient slept well.Vital signs taken and recorded, WNL. Denies of any pain. All needs attended to. Kept clean, dry and comfortable. Will endorse to Am shift nurse.
--- NOTE | 2017-12-22 07:00 | NUR ---
RECEIVED PATIENT ON BED ASLEEP, A AND O X 2-3, YI SPEAKING. NO ACUTE DISTRESS NOTED ON O2 @3LPM VIA NC, WELL TOLERATED. WITH IV ACCESS ON THE RIGHT ARM #22, INTACT AND PATENT. HUIZAR CATHETER INTACT AND DRAINING CLEAR YELLOW URINE. NO COMPLAINTS OF PAIN AND DISCOMFORT AT THIS TIME. PATIENT STATED THAT HE DID NOT GET ENOUGH SLEEP LAST NIGHT. COMFORT MEASURES PROVIDED. CALL LIGHT WITHIN REACH. WILL CONTINUE TO MONITOR CLOSELY.
[2017-12-22 07:07] LABS: BASOPHILS % (AUTO) 0.1 % (0.0-2.0); LYMPHOCYTES # (AUTO) 0.5 K/uL (20.0-40.0); LYMPHOCYTES % (AUTO) 2.4 % (20.5-51.5); MEAN CORPUSCULAR HGB CONC 32 g/dL (32.5-36.3); MEAN CORPUSCULAR VOLUME 83.8 fL (73.0-96.2); MONOCYTES # (AUTO) 0.6 K/uL (2.0-10.0); MONOCYTES % (AUTO) 3.1 % (0.0-11.0); NEUTROPHILS # (AUTO) 18.3 K/uL (1.8-8.9); NEUTROPHILS % (AUTO) 94.4 % (38.5-71.5); PLATELET COUNT (AUTO) 253 K/uL (152-348); RED BLOOD CELL COUNT(AUTO) 3.49 MIL/uL (4.06-5.63); WHITE BLOOD COUNT (AUTO) 19.3 K/uL (3.6-10.2)
[2017-12-22 07:10] LABS: ALANINE AMINOTRANSFERASE 32 U/L (16-63); ALKALINE PHOSPHATASE 82 U/L (50-136); ASPARTATE AMINOTRANSFERASE 14 U/L (15-37); BILIRUBIN,TOTAL 0.2 mg/dL (0.2-1.0); CARBON DIOXIDE 24 mmol/L (21-32); CHLORIDE 103 mmol/L (98-107); CREATININE 3.1 mg/dL (0.6-1.3); GLUCOSE 147 mg/dL (74-106); MAGNESIUM 1.8 mg/dL (1.8-2.4); PHOSPHOROUS 5.9 mg/dL (2.5-4.9); POTASSIUM 4.9 mmol/L (3.5-5.1); TOTAL PROTEIN, SERUM 5.7 g/dL (6.4-8.2)
[2017-12-22 07:12] LABS: UREA NITROGEN, BLOOD 83 mg/dL (7-18)
[2017-12-22 07:22] LABS: HEMATOCRIT 29.2 % (36.7-47.1); HEMOGLOBIN 9.4 g/dL (12.5-16.3)
[2017-12-22 08:06] LABS: HEPATITIS B SURFACE AB Non Reactive (.); HEPATITIS B SURFACE AG Negative (Negative)
[2017-12-22 08:11] LABS: LYMPHOCYTES % (MANUAL) 2 % (20-40); MONOCYTES % (MANUAL) 2 % (2-10); NEUTROPHILS % (MANUAL) 96 % (42-75)
[2017-12-22] MEDS: INSULIN REGULAR, HUMAN 300 UNIT/3 ML VIAL SQ PRN ×3 (08:43→17:14)
[2017-12-22] MEDS: GABAPENTIN 300 MG CAPSULE PO SCH ×2 (08:44→17:08)
[2017-12-22] MEDS: LEVETIRACETAM 500 MG TABLET PO SCH ×2 (08:44→20:32)
[2017-12-22] MEDS: METOPROLOL TARTRATE 50 MG TABLET PO SCH ×2 (08:45→20:33)
[2017-12-22] MEDS: AMLODIPINE 5 MG TABLET PO SCH ×2 (08:45→20:33)
[2017-12-22] MEDS: hydrALAZINE HCL 50 MG TABLET PO SCH ×2 (08:45→20:33)
[2017-12-22] MEDS: methylPREDNISolone SOD SUCC 40 MG/ML VIAL IV SCH ×2 (08:51→20:32)
[2017-12-22 11:20] VITALS: BP 121/61
[2017-12-22] MEDS: INSULIN REGULAR, HUMAN 300 UNIT/3 ML VIAL SQ SCH ×2 (12:03→17:13)
[2017-12-22 15:13] VITALS: BP 130/62
--- NOTE | 2017-12-22 16:03 | NUR ---
SEEN AND EXAMINED BY DR. CHU WITH ORDERS FOR CXR NOTED AND CARRIED OUT. WILL CONTINUE TO MONITOR.
[2017-12-22 16:08] LABS: *ANTI-SCLERODERMA-70 AB <0.2 AI (0.0-0.9); *SJOGREN'S ANTI-SS-A <0.2 AI (0.0-0.9); *SJOGREN'S ANTI-SS-B <0.2 AI (0.0-0.9); *SMITH ANTIBODIES <0.2 AI (0.0-0.9); ANTI-DNA(DS) AB, QN <1 IU/mL (0-9)
--- NOTE | 2017-12-22 19:45 | NUR ---
Received pt on bed awake, alert and oriented. Family at bedside. No acute distress noted. No complaints of pain or discomfort. On o2 2LPM NC, no SOB noted. Vital signs stable. Safety and fall precautions observed and maintained. Call light placed within reach. All needs attended. Will continue to monitor.
[2017-12-22 20:32] VITALS: BP 127/56
[2017-12-22] MEDS: DOCUSATE SODIUM 100 MG CAPSULE PO SCH (20:32)
[2017-12-22] MEDS: TAMSULOSIN HCL 0.4 MG CAP.SR.24H PO SCH (20:33)
[2017-12-22] MEDS: INSULIN GLARGINE,HUM 300 UNITS/3 ML CARTRIDGE SQ SCH (20:45)
[2017-12-22] MEDS: INSULIN REGULAR, HUMAN 300 UNITS/3 ML VIAL SQ PRN (20:46)
[2017-12-22] MEDS ORDERED: LEVOFLOXACIN 250MG /D5W 250 MG in PREMIXED 1 EACH IV SCH (23:00)
[2017-12-23] MEDS: ALBUTEROL SULFATE 2.5 MG/3 ML NEBU NEB SCH ×3 (00:36→14:22)
[2017-12-23] MEDS: IPRATROPIUM BROMIDE 0.5 MG/2.5 ML NEBU NEB SCH ×3 (00:36→14:22)
--- NOTE | 2017-12-23 05:30 | NUR ---
PATIENT SLEPT WELL THROUGHOUT THE SHIFT WITH NO SIGNS/SYMPTOMS OF DISTRESS NOTED. DENIES PAIN. NO SOB NOTED. HUIZAR CATHETER INTACT AND PATENT WITH CLEAR YELLOW URINE DRAINING. SIDE RAILS UP X2. BED ALARM ON. BED LOCKED AND IN LOWEST POSITION. CALL LIGHT WITHIN REACH. ALL NEEDS ATTENDED.
[2017-12-23] MEDS: CLONIDINE HCL 0.1 MG TABLET PO SCH ×2 (06:09→13:40)
[2017-12-23] MEDS: PANTOPRAZOLE SODIUM 40 MG TABLET.DR PO SCH (06:09)
[2017-12-23] MEDS: BLOOD SUGAR DIAGNOSTIC 1 EACH STRIP VI SCH ×3 (06:13→17:03)
[2017-12-23 06:22] VITALS: BP 139/62
[2017-12-23 06:48] LABS: CARBON DIOXIDE 22 mmol/L (21-32); CHLORIDE 103 mmol/L (98-107); CREATININE 3.2 mg/dL (0.6-1.3); GLUCOSE 241 mg/dL (74-106); MAGNESIUM 1.7 mg/dL (1.8-2.4); PHOSPHOROUS 5.7 mg/dL (2.5-4.9); POTASSIUM 4.7 mmol/L (3.5-5.1)
[2017-12-23 06:51] LABS: UREA NITROGEN, BLOOD 92 mg/dL (7-18)
[2017-12-23 07:03] LABS: HEMATOCRIT 27.1 % (36.7-47.1); HEMOGLOBIN 8.7 g/dL (12.5-16.3); LYMPHOCYTES # (AUTO) 0.3 K/uL (20.0-40.0); LYMPHOCYTES % (AUTO) 2.2 % (20.5-51.5); MEAN CORPUSCULAR HEMOGLOBIN 26.8 uug (23.8-33.4); MEAN CORPUSCULAR HGB CONC 32 g/dL (32.5-36.3); MEAN CORPUSCULAR VOLUME 83.5 fL (73.0-96.2); MONOCYTES # (AUTO) 0.6 K/uL (2.0-10.0); MONOCYTES % (AUTO) 3.6 % (0.0-11.0); NEUTROPHILS # (AUTO) 14.7 K/uL (1.8-8.9); NEUTROPHILS % (AUTO) 94.2 % (38.5-71.5); PLATELET COUNT (AUTO) 208 K/uL (152-348); RED BLOOD CELL COUNT(AUTO) 3.25 MIL/uL (4.06-5.63); WHITE BLOOD COUNT (AUTO) 15.6 K/uL (3.6-10.2)
[2017-12-23] MEDS: METOPROLOL TARTRATE 50 MG TABLET PO SCH (08:32)
[2017-12-23] MEDS: methylPREDNISolone SOD SUCC 40 MG/ML VIAL IV SCH (08:32)
[2017-12-23] MEDS: hydrALAZINE HCL 50 MG TABLET PO SCH (08:33)
[2017-12-23] MEDS: GABAPENTIN 300 MG CAPSULE PO SCH ×2 (08:33→17:03)
[2017-12-23] MEDS: AMLODIPINE 5 MG TABLET PO SCH (08:33)
[2017-12-23] MEDS: LEVETIRACETAM 500 MG TABLET PO SCH (08:33)
[2017-12-23] MEDS: INSULIN REGULAR, HUMAN 300 UNIT/3 ML VIAL SQ SCH ×3 (08:36→17:04)
[2017-12-23] MEDS ORDERED: MAGNESIUM SULFATE/D5W 100 ML IV SCH (11:15)
[2017-12-23 11:24] VITALS: BP 130/64
[2017-12-23] MEDS: INSULIN REGULAR, HUMAN 300 UNIT/3 ML VIAL SQ PRN ×2 (11:51→17:05)
[2017-12-23 15:09] LABS: COMPLEMENT, C3 SERUM 114 mg/dL (82-167); COMPLEMENT, C4 SERUM 24 mg/dL (14-44)
[2017-12-23 15:34] VITALS: BP 115/52
[2017-12-23] MEDS ORDERED: INSU3INS6 SQ (16:02)
[2017-12-23] MEDS ORDERED: METH4TAB3 PO (16:02)
[2017-12-23] MEDS ORDERED: TAMS-3 PO (16:02)
[2017-12-23] MEDS ORDERED: LEVO500T2 PO (16:02)
--- NOTE | 2017-12-23 18:23 | NUR ---
PT DISCHARGED HOME WITH ALL BELONGINGS, VALUABLES, AND EXIT- CARE PACKET. EXIT-CARE PACKET SIGNED BY DAUGHTER. PT TO TRANSPORT TO CAR WITH WHEEL CHAIR. IV REMOVED, HUIZAR REMOVED, PT VOIDED PRIOR TO D/C. SKIN INTACT, NO SIGNS OF RESPIRATORY DISTRESS. PT WILL BE RECEIVING HOME [facility] SERVICES BY [facility] .
[2017-12-23 18:27] VITALS: BP 115/52
== END 2017-12-23 18:20 | disposition home health service (06) | DRG 420 ==
LOC: EDBD 17:46 → ER 17:46 → TELE 20:23 → MED 12-18 12:30
PROVIDERS: ADMIT Internal Medicine; ATTEND Internal Medicine
PROC: 0W993ZX Drainage of Right Pleural Cavity, Percutaneous Approach, Diagnostic (ICD-10-PCS; principal; 2017-12-20)
PROC: 30233N1 Transfusion of Nonautologous Red Blood Cells into Peripheral Vein, Percutaneous Approach (ICD-10-PCS; 2017-12-21)
DX: E11.649 Type 2 diabetes mellitus with hypoglycemia without coma (principal); N17.0 Acute kidney failure with tubular necrosis; J96.01 Acute respiratory failure with hypoxia; E43 Unspecified severe protein-calorie malnutrition; I50.31 Acute diastolic (congestive) heart failure; G93.41 Metabolic encephalopathy; J18.9 Pneumonia, unspecified organism; J91.8 Pleural effusion in other conditions classified elsewhere; I13.0 Hypertensive heart and chronic kidney disease with heart failure and stage 1 through stage 4 chronic kidney disease, or unspecified chronic kidney disease; Z79.4 Long term (current) use of insulin; E11.42 Type 2 diabetes mellitus with diabetic polyneuropathy; G40.909 Epilepsy, unspecified, not intractable, without status epilepticus; E11.22 Type 2 diabetes mellitus with diabetic chronic kidney disease; N18.9 Chronic kidney disease, unspecified; E04.2 Nontoxic multinodular goiter; Z68.35 Body mass index [BMI] 35.0-35.9, adult; E87.5 Hyperkalemia; E66.9 Obesity, unspecified; M48.02 Spinal stenosis, cervical region; M48.54XA Collapsed vertebra, not elsewhere classified, thoracic region, initial encounter for fracture; M46.90 Unspecified inflammatory spondylopathy, site unspecified; M19.012 Primary osteoarthritis, left shoulder; M19.011 Primary osteoarthritis, right shoulder; Z86.73 Personal history of transient ischemic attack (TIA), and cerebral infarction without residual deficits; Z90.79 Acquired absence of other genital organ(s); Z87.891 Personal history of nicotine dependence; T38.0X5A Adverse effect of glucocorticoids and synthetic analogues, initial encounter; N28.1 Cyst of kidney, acquired; E87.1 Hypo-osmolality and hyponatremia; E83.51 Hypocalcemia; E83.39 Other disorders of phosphorus metabolism; D50.9 Iron deficiency anemia, unspecified; Z98.890 Other specified postprocedural states; E83.42 Hypomagnesemia; Z87.01 Personal history of pneumonia (recurrent); M89.9 Disorder of bone, unspecified; J44.0 Chronic obstructive pulmonary disease with (acute) lower respiratory infection; E11.65 Type 2 diabetes mellitus with hyperglycemia; R19.5 Other fecal abnormalities
CPT/HCPCS: 32555; 36415; 36600; 70030-TC; 70450; 71045; 71250; 72125; 76604; 76770; 83550; 83605; 83615; 83735; 83986; 84100; 84155; 84156; 84300; 84443; 85018; 85025; 85651; 85730; 86038; 86160; 86706; 86803; 86850; 86900; 86901; 86920; 87040; 87070; 87075; 87086; 87205; 87340; 93005; 93307; 94640; 94664; 97110; 97116; 97530; A4663; G0480; G0480-TC; J1815; J1940; J1953; J1956; J2060; J2270; J2920; J3475; J3490; J3590; J7050; J7060; P9016-BL; P9021

== ENCOUNTER 2018-01-05 13:25 | Inpatient (IN) | payer MEDICAID, MEDICARE ==
[~2018-01-05] VITALS: Ht 165.1 cm; Wt 79.6 kg
[~2018-01-05 13:25] MED LIST changes: +BUDE10.2 INH; +HYDR100T27 PO; +INSU3INS6 SQ; -LANTUS INSULIN SQ; +LEVE500T9 PO; +LEVO500T2 PO; +METH4TAB3 PO; +METO50TA16 PO; +MONT10TA25 PO; +PANT40TA2 PO; +TAMS-3 PO
--- NOTE | 2018-01-05 13:40 | NUR ---
pt daughter came and talked to pt. pt responding to daughter. per pt daughter, this presentation of the pt resembles to to the previous hypoglycemic episodes.
[2018-01-05] MEDS ORDERED: BLOO-360 IN (13:43)
[2018-01-05] MEDS ORDERED: GABA-534 PO (13:43)
[2018-01-05] MEDS ORDERED: AMLO5TAB4 PO (13:43)
[2018-01-05] MEDS ORDERED: OMEP20TA20 PO (13:43)
[2018-01-05] MEDS ORDERED: TAMS-3 PO (13:43)
[2018-01-05] MEDS ORDERED: FURO20TA4 PO (13:43)
[2018-01-05] MEDS ORDERED: CLON0.1T PO (13:43)
[2018-01-05] MEDS ORDERED: OMEP40CA37 PO (13:43)
[2018-01-05] MEDS ORDERED: DEXTROSE 50% 50 ML DISP.SYRIN ONE (13:59)
[2018-01-05] MEDS ORDERED: IV D5 1/2 NS 1000 ML 1,000 ML IV ONE (14:00)
[2018-01-05] MEDS ORDERED: DEXTROSE 5% IV ONE (14:00)
[2018-01-05 14:01] LABS: BASOPHILS # (AUTO) 0.1 K/uL (0.0-8.0); BASOPHILS % (AUTO) 0.9 % (0.0-2.0); EOSINOPHILS # (AUTO) 0.2 K/uL (0.0-0.7); EOSINOPHILS % (AUTO) 2.8 % (0.0-7.0); HEMATOCRIT 25.3 % (36.7-47.1); HEMOGLOBIN 8.3 g/dL (12.5-16.3); LYMPHOCYTES # (AUTO) 0.8 K/uL (20.0-40.0); LYMPHOCYTES % (AUTO) 11.6 % (20.5-51.5); MEAN CORPUSCULAR HEMOGLOBIN 27.7 uug (23.8-33.4); MEAN CORPUSCULAR HGB CONC 33 g/dL (32.5-36.3); MONOCYTES # (AUTO) 0.7 K/uL (2.0-10.0); MONOCYTES % (AUTO) 10.5 % (0.0-11.0); NEUTROPHILS # (AUTO) 5.1 K/uL (1.8-8.9); NEUTROPHILS % (AUTO) 74.2 % (38.5-71.5); PLATELET COUNT (AUTO) 180 K/uL (152-348); RED BLOOD CELL COUNT(AUTO) 3.01 MIL/uL (4.06-5.63); WHITE BLOOD COUNT (AUTO) 6.9 K/uL (3.6-10.2)
[2018-01-05] MEDS ORDERED: LANTUS SQ (14:02)
[2018-01-05 14:15] LABS: CARBON DIOXIDE 20 mmol/L (21-32); CHLORIDE 108 mmol/L (98-107); CREATININE 2.4 mg/dL (0.6-1.3); GLUCOSE 58 mg/dL (74-106); POTASSIUM 4.3 mmol/L (3.5-5.1); UREA NITROGEN, BLOOD 43 mg/dL (7-18)
[2018-01-05 14:21] LABS: ALANINE AMINOTRANSFERASE 39 U/L (16-63); ALKALINE PHOSPHATASE 83 U/L (50-136); ASPARTATE AMINOTRANSFERASE 25 U/L (15-37); BILIRUBIN,DIRECT < 0.1 mg/dL (0.0-0.2); BILIRUBIN,TOTAL 0.2 mg/dL (0.2-1.0); TOTAL PROTEIN, SERUM 5.4 g/dL (6.4-8.2)
[2018-01-05] MEDS ORDERED: ONDANSETRON 4 MG/2 ML VIAL ONE (14:26)
[2018-01-05] MEDS ORDERED: MORPHINE SULFATE 2 MG/1 ML DISP.SYRIN ONE (14:27)
[2018-01-05] MEDS ORDERED: ONDANSETRON 4 MG/2 ML VIAL IV ONE (14:30)
[2018-01-05] MEDS ORDERED: MORPHINE SULFATE 2 MG/1 ML DISP.SYRIN IV ONE (14:30)
[2018-01-05 14:43] LABS: THYROID STIMULATING HORMONE 2.062 mIU/mL (0.358-3.740)
[2018-01-05 16:10] LABS: *BILIRUBIN,URIN NEGATIVE (NEGATIVE); *BLOOD, URINE 2+ (NEGATIVE); *CLARITY,URINE CLEAR (CLEAR); *COLOR,URINE LIGHT YELLOW (YELLOW); *KETONES,URINE NEGATIVE (NEGATIVE); *UROBILINOGEN,URINE 0.2 E.U./dl (NORMAL); LEUKOCYTE ESTERASE ,URINE NEGATIVE (NEGATIVE); NITRITE, URINE NEGATIVE (NEGATIVE); PH,URINE 5.5 (5.0-8.0); UGLUCOSE NEGATIVE (NEGATIVE)
[2018-01-05] MEDS ORDERED: LORAZEPAM 2 MG/1 ML VIAL IV ONE (16:15)
[2018-01-05 16:26] LABS: *PROTEIN,URINE 3+ (NEGATIVE)
[2018-01-05] MEDS ORDERED: LORAZEPAM 2 MG/1 ML VIAL ONE (16:28)
[2018-01-05 16:32] LABS: MUCUS,URINE FEW /LPF (0-FEW); SQUAMOUS EPITHELIAL CELL,UR FEW /HPF (NONE SEEN); WBC,URINE 0-3 /HPF (0-3)
[2018-01-05] MEDS ORDERED: AZITHROMYCIN 500 MG VIAL IV ONE (16:43)
[2018-01-05] MEDS ORDERED: CEFTRIAXONE 1 G VIAL ONE (16:44)
[2018-01-05] MEDS ORDERED: CEFTRIAXONE 1 G in IV DEXTROSE 5% 50 ML IV ONE (16:45)
[2018-01-05] MEDS ORDERED: AZITHROMYCIN IV 500 MG in IV DEXTROSE 5% 250 ML IV ONE (16:45)
[2018-01-05] MEDS ORDERED: LIDOCAINE 2% (UROJET) 10 ML JELLY MM ONE ×2 (16:56→18:15)
[2018-01-05] MEDS ORDERED: VANCOMYCIN IV 1,000 MG in IV DEXTROSE 5% 250 ML IV ONE (17:30)
[2018-01-05] MEDS ORDERED: VANCOMYCIN IV 200 ML ONE (18:13)
--- NOTE | 2018-01-05 18:45 | NUR ---
NEW PATIENT FROM ER TO ROOM 218 ,VERY CONFUSED AND COMBATIVE UNCOOPERATE [place] AMHARIC ONLY HL INTACT ON LT HAND #20 ON FALL PRECAUTION BED ALARM ON AND CALL LIGHT IN REACH CLOSED OBSERVATION UNABLE TO TAKE VS AT THIS TIME CONTINUE O2 AT 2L/MINS
--- NOTE | 2018-01-05 18:50 | NUR ---
pt transfered to floor in stable condition
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
--- NOTE | 2018-01-05 20:00 | NUR ---
RECEIVED PATIENT AGITATED AND NONCOMPLIANT WITH ALL CARE. UNABLE TO GET VITAL SIGNS/PLACE TELE MONITOR BECAUSE OF AGGRESSIVE/COMBATIVE BEHAVIOR. ON NC 3L. MADE AWARE. BILATERAL MITTENS PLACED FOR SAFETY. WILL CONTINUE TO MONITOR.
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
[2018-01-05 20:47] VITALS: BP 139/69
[2018-01-05] MEDS: LORAZEPAM 2 MG/1 ML VIAL IV PRN (21:00)
--- NOTE | 2018-01-05 21:30 | NUR ---
FAMILY AT BEDSIDE WITH PATIENT. PATIENT IS ASLEEP. MITTENS REMOVED. WILL CONTINUE TO MONITOR AND CLOSELY OBSERVE PATIENT.
[2018-01-05] MEDS ORDERED: ONDANSETRON 4 MG/2 ML VIAL IV PRN (21:45)
[2018-01-05] MEDS ORDERED: DEXTROSE 50% 50 ML DISP.SYRIN IV PRN (21:45)
[2018-01-05] MEDS ORDERED: ALBUTEROL SULFATE 2.5 MG/3 ML NEBU NEB PRN (21:45)
[2018-01-05] MEDS ORDERED: MIRALAX 17 GM POWD.PACK PO PRN (21:45)
[2018-01-05] MEDS ORDERED: PIPERACILLIN/TAZO 2.25 GM VIAL ONE (23:09)
--- NOTE | 2018-01-06 00:28 | NUR ---
PATIENTS OTHER DAUGHTER AT BEDSIDE. PATIENT LIVES AT HOME WITH THIS DAUGHTER. VS TAKEN AND DIAPER CHANGED. PATIENT STARTED TO BECOME AGITATED BUT CALMED DOWN WITH DAUGHTER AT SIDE. MITTENS REMOVED. NO NEED FOR ANY MITTENS AT THIS TIME. DAUGHTER WILL STAY OVERNIGHT. BREAD OVEN OPERATOR AND NURSING SUP. NOTIFIED. BED ALARM ON. ALL NEEDS ATTENDED.
[2018-01-06] MEDS: PIPERACILLIN/TAZOBACTAM/D5W 2.25 G in PREMIXED 1 EACH IV SCH ×3 (00:32→12:10)
[2018-01-06 00:40] VITALS: BP 154/76
[2018-01-06 04:30] VITALS: BP 148/78
[2018-01-06] MEDS: PANTOPRAZOLE SODIUM 40 MG TABLET.DR PO SCH (06:01)
[2018-01-06] MEDS: BLOOD SUGAR DIAGNOSTIC 1 EACH STRIP VI SCH ×4 (06:30→21:58)
--- NOTE | 2018-01-06 07:10 | NUR ---
RECEIVED REPORT FROM IMAGING CENTER MANAGER NURSE, PATIENT ASLEEP,NO EVIDENCE OF DISTRESS NOTED AT THIS TIME, BED IN LOW POSITION, SIDE RAILS UP X2, SITTER AT BEDSIDE.
[2018-01-06 07:14] LABS: BASOPHILS # (AUTO) 0.1 K/uL (0.0-8.0); BASOPHILS % (AUTO) 0.7 % (0.0-2.0); EOSINOPHILS # (AUTO) 0.2 K/uL (0.0-0.7); EOSINOPHILS % (AUTO) 2.9 % (0.0-7.0); HEMATOCRIT 24.5 % (36.7-47.1); LYMPHOCYTES # (AUTO) 1.1 K/uL (20.0-40.0); LYMPHOCYTES % (AUTO) 14.1 % (20.5-51.5); MEAN CORPUSCULAR HEMOGLOBIN 27.5 uug (23.8-33.4); MEAN CORPUSCULAR HGB CONC 33 g/dL (32.5-36.3); MEAN CORPUSCULAR VOLUME 83.8 fL (73.0-96.2); MONOCYTES # (AUTO) 0.6 K/uL (2.0-10.0); MONOCYTES % (AUTO) 7.4 % (0.0-11.0); NEUTROPHILS # (AUTO) 5.7 K/uL (1.8-8.9); NEUTROPHILS % (AUTO) 74.9 % (38.5-71.5); PLATELET COUNT (AUTO) 195 K/uL (152-348); RED BLOOD CELL COUNT(AUTO) 2.92 MIL/uL (4.06-5.63); WHITE BLOOD COUNT (AUTO) 7.7 K/uL (3.6-10.2)
--- NOTE | 2018-01-06 07:35 | NUR ---
CONTACTED DR. GEORGE FOR CRITICAL MAGNESIUM LEVELS. ORDERS RECEIVED FOR 2G MAG. SULFATE. IV.
[2018-01-06 07:50] VITALS: BP 152/60
[2018-01-06 07:51] LABS: ALANINE AMINOTRANSFERASE 35 U/L (16-63); ALKALINE PHOSPHATASE 78 U/L (50-136); ASPARTATE AMINOTRANSFERASE 23 U/L (15-37); BILIRUBIN,TOTAL 0.2 mg/dL (0.2-1.0); CARBON DIOXIDE 23 mmol/L (21-32); CHLORIDE 108 mmol/L (98-107); CREATININE 2.5 mg/dL (0.6-1.3); GLUCOSE 108 mg/dL (74-106); PHOSPHOROUS 4.7 mg/dL (2.5-4.9); POTASSIUM 5.1 mmol/L (3.5-5.1); TOTAL PROTEIN, SERUM 5.3 g/dL (6.4-8.2); UREA NITROGEN, BLOOD 40 mg/dL (7-18)
[2018-01-06] MEDS: LEVETIRACETAM 500 MG TABLET PO SCH ×2 (08:04→17:24)
[2018-01-06] MEDS: METOPROLOL TARTRATE 50 MG TABLET PO SCH ×2 (08:05→21:00)
[2018-01-06] MEDS: AMLODIPINE 5 MG TABLET PO SCH ×2 (08:05→21:00)
[2018-01-06] MEDS: LORAZEPAM 2 MG/1 ML VIAL IV PRN ×2 (08:06→18:42)
[2018-01-06 08:38] LABS: MAGNESIUM 1.1 mg/dL (1.8-2.4)
[2018-01-06] MEDS ORDERED: FUROSEMIDE 20 MG TABLET PO SCH (09:00)
[2018-01-06] MEDS: MAGNESIUM SULFATE/D5W 100 ML IV SCH ×2 (10:01→11:20)
--- NOTE | 2018-01-06 10:16 | NUR ---
CLINICAL PHARMACY NOTE: VANCOMYCIN PHARMACY TO DOSE Subjective: To start vanco for this 77 y/o male for PNA (waiting for MD note) Objective: height 165.1 cm weight 92 kg BUN 40 Scr 2.5 wbc 7.7 temp 98.9 Assessment/Plan Patient received vanco 1gm IVPB x1 on 01/05 at 1900. Due to advanced age & elevated srcr, will dose by fall off level. Will check vanco random level today at 1800. Pharmacist shall review the level when available for further dosing. Will continue to follow up. Addendum: 01/06/18 at 1935 by MARK DUONG ADM RANDOM VANCOMYCIN LEVEL 4.7. GIVE VANCOMYCIN 1250MG IVPB X 1 REPEAT RANDOM LEVEL TOMORROW EVENING
[2018-01-06] MEDS: GABAPENTIN 300 MG CAPSULE PO SCH ×2 (10:20→17:24)
[2018-01-06] MEDS ORDERED: MAGNESIUM SULFATE/D5W 100 ML IV SCH (10:30)
--- NOTE | 2018-01-06 10:35 | NUR ---
DISCUSSED PATIENTS CONDITION OF LUNG SOUNDS AND SEVERE PITTING EDEMA WITH AMELIA CAPPAROS. WARDROBE TECHNICIAN WILL EVALUATE PATIENT.
[2018-01-06] MEDS: MORPHINE SULFATE 4 MG/1 ML DISP.SYRIN IV PRN ×2 (11:19→15:40)
[2018-01-06 11:42] VITALS: BP 139/65
[2018-01-06 12:09] LABS: *OCCULT BLOOD STOOL NEGATIVE (NEGATIVE)
[2018-01-06 15:40] VITALS: BP 141/77
[2018-01-06] MEDS: OLANZAPINE ZYDIS 5 MG TAB.RAPDIS PO PRN (16:43)
[2018-01-06] MEDS: DIVALPROEX SPRINKLE 125 MG CAP.SPRINK PO SCH (17:24)
[2018-01-06] MEDS: ALBUTEROL SULFATE 2.5 MG/3 ML NEBU NEB PRN ×2 (17:24→20:46)
[2018-01-06] MEDS: IPRATROPIUM BROMIDE 0.5 MG/2.5 ML NEBU NEB PRN ×2 (17:24→20:46)
[2018-01-06] MEDS: PIPERACILLIN/TAZOBACTAM/D5W 50 ML IV SCH ×2 (17:25→23:32)
[2018-01-06] MEDS: IPRATROPIUM BROMIDE 0.5 MG/2.5 ML NEBU NEB SCH (18:41)
[2018-01-06] MEDS: ALBUTEROL SULFATE 2.5 MG/3 ML NEBU NEB SCH (18:41)
--- NOTE | 2018-01-06 18:45 | NUR ---
PATIENT HAS BEEN UNCOOPERATIVE WITH CARE, TRYING TO TAKE LINES OUT, PUNCHING, TAKING OFF TELE MONITOR, AND TRYING TO GET OUT OF BED. MEDICATION GIVEN TO HELP WITH ANXIETY/AGITATION. CURRENTLY PATIENT IN BED, BED IN LOW POSITION, SIDE RIALS UP X2, BED ALARM ON, SITTER AT BEDSIDE.
[2018-01-06 19:47] VITALS: BP 161/91
--- NOTE | 2018-01-06 20:00 | NUR ---
AT THIS TIME, PT IS NOTED TO BE AGITATED, COMBATIVE AND NON COMPLIANT WITH ALL CARE. RELAXATION TECHNIQUES SUCH REPOSITIONING, CALMING TECHNIQUES PROVIDED. BP NOTED TO BE ELEVATED AND MD INFORMED. PER MD, DO NOT ADMINISTER ANY PO MEDICATIONS DUE TO ALTERED MENTAL STATUS AND ASPIRATION PRECAUTIONS. RECEIVED ORDERS FOR NITRO PRN Q6H FOR ELEVATED BP. FAMILY AT BEDSIDE ASSISTING WITH CARE.
[2018-01-06] MEDS ORDERED: NITROGLYCERIN OINT 1 GM PACKET TP SCH (20:30)
[2018-01-06] MEDS ORDERED: VANCOMYCIN IV 1,250 MG in IV DEXTROSE 5% 500 ML IV ONE (21:00)
[2018-01-06] MEDS: MONTELUKAST SODIUM 10 MG TABLET PO SCH (21:00)
[2018-01-06] MEDS ORDERED: VANCOMYCIN IV 1,250 MG in IV NORMAL SALINE 500 ML IV ONE (21:00)
[2018-01-06] MEDS ORDERED: DOCUSATE SODIUM 250 MG CAPSULE PO SCH (21:00)
[2018-01-06] MEDS: DOCUSATE SODIUM 100 MG CAPSULE PO SCH (21:00)
[2018-01-06] MEDS: TAMSULOSIN HCL 0.4 MG CAP.SR.24H PO SCH (21:00)
[2018-01-06] MEDS: FUROSEMIDE 20 MG/2 ML VIAL IV SCH (21:54)
[2018-01-06] MEDS: NITROGLYCERIN OINT 1 GM PACKET TP PRN (21:55)
[2018-01-07] VITALS: BP 139/56
[2018-01-07] MEDS: IPRATROPIUM BROMIDE 0.5 MG/2.5 ML NEBU NEB SCH ×4 (00:44→20:47)
[2018-01-07] MEDS: ALBUTEROL SULFATE 2.5 MG/3 ML NEBU NEB SCH ×4 (00:44→20:47)
[2018-01-07 04:00] VITALS: BP 128/70
[2018-01-07] MEDS: PIPERACILLIN/TAZOBACTAM/D5W 50 ML IV SCH ×4 (05:09→23:44)
[2018-01-07] MEDS: LORAZEPAM 2 MG/1 ML VIAL IV PRN ×3 (05:09→23:28)
--- NOTE | 2018-01-07 06:06 | NUR ---
PT SLEPT THROUGHOUT THE NIGHT. NO S/S OF RESPIRATORY DISTRESS. BLOOD PRESSURE CONTROLLED. THIS MORNING SOME AGITATION NOTED ATIVAN PRN ADMINISTERED ORDERED. WILL CONTINUE TO MONITOR. SITTER AT BEDSIDE FOR SAFETY. CALL LIGHT WITHIN REACH. SAFETY MEASURES PROVIDED.
[2018-01-07] MEDS: BLOOD SUGAR DIAGNOSTIC 1 EACH STRIP VI SCH ×4 (06:32→20:50)
[2018-01-07] MEDS: PANTOPRAZOLE SODIUM 40 MG TABLET.DR PO SCH (06:32)
[2018-01-07 06:53] LABS: ALANINE AMINOTRANSFERASE 30 U/L (16-63); ALKALINE PHOSPHATASE 83 U/L (50-136); ASPARTATE AMINOTRANSFERASE 21 U/L (15-37); BILIRUBIN,TOTAL 0.3 mg/dL (0.2-1.0); CARBON DIOXIDE 24 mmol/L (21-32); CHLORIDE 108 mmol/L (98-107); GLUCOSE 98 mg/dL (74-106); MAGNESIUM 1.5 mg/dL (1.8-2.4); PHOSPHOROUS 4.7 mg/dL (2.5-4.9); POTASSIUM 4.6 mmol/L (3.5-5.1); TOTAL PROTEIN, SERUM 5.5 g/dL (6.4-8.2); UREA NITROGEN, BLOOD 37 mg/dL (7-18)
[2018-01-07 07:03] LABS: BASOPHILS # (AUTO) 0.1 K/uL (0.0-8.0); BASOPHILS % (AUTO) 0.7 % (0.0-2.0); EOSINOPHILS # (AUTO) 0.2 K/uL (0.0-0.7); EOSINOPHILS % (AUTO) 2.4 % (0.0-7.0); HEMATOCRIT 24.7 % (36.7-47.1); HEMOGLOBIN 8.1 g/dL (12.5-16.3); LYMPHOCYTES # (AUTO) 1.1 K/uL (20.0-40.0); LYMPHOCYTES % (AUTO) 15.4 % (20.5-51.5); MEAN CORPUSCULAR HEMOGLOBIN 27.4 uug (23.8-33.4); MEAN CORPUSCULAR HGB CONC 33 g/dL (32.5-36.3); MEAN CORPUSCULAR VOLUME 83.5 fL (73.0-96.2); MONOCYTES # (AUTO) 0.7 K/uL (2.0-10.0); MONOCYTES % (AUTO) 10.2 % (0.0-11.0); NEUTROPHILS % (AUTO) 71.3 % (38.5-71.5); PLATELET COUNT (AUTO) 191 K/uL (152-348); RED BLOOD CELL COUNT(AUTO) 2.96 MIL/uL (4.06-5.63)
--- NOTE | 2018-01-07 07:15 | NUR ---
received report from assistant manager trainee nurse, patient in bed asleep, no evidence of distress noted at this time, bed in low position, side rails up x2. bed alarm on. Sitter at bedside.
[2018-01-07] MEDS: FUROSEMIDE 20 MG/2 ML VIAL IV SCH (09:21)
[2018-01-07] MEDS: AMLODIPINE 5 MG TABLET PO SCH ×2 (09:22→20:48)
[2018-01-07] MEDS: GABAPENTIN 300 MG CAPSULE PO SCH ×2 (09:22→17:52)
[2018-01-07] MEDS: DIVALPROEX SPRINKLE 125 MG CAP.SPRINK PO SCH ×2 (09:23→17:52)
[2018-01-07] MEDS: OLANZAPINE ZYDIS 5 MG TAB.RAPDIS PO PRN (09:23)
[2018-01-07] MEDS: LEVETIRACETAM 500 MG TABLET PO SCH ×2 (09:23→17:52)
[2018-01-07] MEDS: METOPROLOL TARTRATE 50 MG TABLET PO SCH ×2 (09:23→20:49)
[2018-01-07] MEDS: MAGNESIUM SULFATE/D5W 100 ML IV SCH ×2 (11:10→13:34)
[2018-01-07 11:32] VITALS: BP 112/59
--- NOTE | 2018-01-07 13:00 | NUR ---
Patient removed IV, and new iv started on left arm. Family at bedside, patient is still uncontrollable and trying to get out of bed.
--- NOTE | 2018-01-07 15:41 | NUR ---
CLINICAL PHARMACY NOTE: VANCOMYCIN PHARMACY TO DOSE Subjective: To continue vanco for this 77 y/o male for recurrent pneumonia Objective: height 165.1 cm weight 92 kg BUN 37 Scr 3.0(not HD yet) wbc 7.0 temp 99 Assessment/Plan Patient received vanco 1gm IVPB x1 on 01/06 at 2156. Due to advanced age & elevated srcr, will dose by fall off level. Will check vanco random level today at 1800. Pharmacist shall review the level when available for further dosing. Will continue to follow up. Addendum: 01/07/18 at 1942 by MARK DUONG ADM RANDOM VANCOMYCIN LEVEL 14.5. GIVE VANCOMYCIN 1250MG IVPB X1 TONIGHT. REPEAT LEVEL TOMORROW EVENING
[2018-01-07 16:07] VITALS: BP 129/65
--- NOTE | 2018-01-07 18:41 | NUR ---
Patient in bed asleep, no distress noted at this time, bed in low position, side rails up x2, sitter at bedside. Family in room. Family spoke to case management about requesting restraints in stead of medication to relax him. Family was notified that restraints are not used on this floor and the patient is more comfortable with anxiety medication.
[2018-01-07 20:00] VITALS: BP 148/81
--- NOTE | 2018-01-07 20:00 | NUR ---
AT THIS TIME, PATIENT IS NOTED TO BE RESTING IN BED RECEIVING BREATHING TX WITH FAMILY MEMBERS SITTING AT BEDSIDE. 1:1 SITTER FOR SAFETY. BED IN LOW, LOCKED POSITION. SIDE RAILS UP X 3. CALL LIGHT WITHIN REACH. BED ALARM ON. WILL CONTINUE TO MONITOR.
[2018-01-07] MEDS: TAMSULOSIN HCL 0.4 MG CAP.SR.24H PO SCH (20:49)
[2018-01-07] MEDS: DOCUSATE SODIUM 100 MG CAPSULE PO SCH (20:49)
[2018-01-07] MEDS: LACTOBACILLUS RHAMNOSUS GG 1 EACH CAPSULE PO SCH (20:49)
[2018-01-07] MEDS: MONTELUKAST SODIUM 10 MG TABLET PO SCH (20:49)
[2018-01-07] MEDS ORDERED: VANCOMYCIN IV 1,250 MG in IV NORMAL SALINE 500 ML IV ONE (21:00)
[2018-01-08] MEDS: IPRATROPIUM BROMIDE 0.5 MG/2.5 ML NEBU NEB SCH ×4 (02:47→19:19)
[2018-01-08] MEDS: ALBUTEROL SULFATE 2.5 MG/3 ML NEBU NEB SCH ×4 (02:47→19:18)
[2018-01-08] MEDS: PIPERACILLIN/TAZOBACTAM/D5W 50 ML IV SCH (05:29)
[2018-01-08 06:12] VITALS: BP 138/74
[2018-01-08] MEDS: PANTOPRAZOLE SODIUM 40 MG TABLET.DR PO SCH (06:14)
[2018-01-08 06:20] LABS: BASOPHILS % (AUTO) 0.5 % (0.0-2.0); EOSINOPHILS # (AUTO) 0.2 K/uL (0.0-0.7); EOSINOPHILS % (AUTO) 2.2 % (0.0-7.0); HEMATOCRIT 24.5 % (36.7-47.1); HEMOGLOBIN 8.2 g/dL (12.5-16.3); LYMPHOCYTES # (AUTO) 0.8 K/uL (20.0-40.0); LYMPHOCYTES % (AUTO) 10.6 % (20.5-51.5); MEAN CORPUSCULAR HEMOGLOBIN 27.7 uug (23.8-33.4); MEAN CORPUSCULAR HGB CONC 34 g/dL (32.5-36.3); MEAN CORPUSCULAR VOLUME 82.7 fL (73.0-96.2); MONOCYTES # (AUTO) 0.6 K/uL (2.0-10.0); MONOCYTES % (AUTO) 8.6 % (0.0-11.0); NEUTROPHILS # (AUTO) 5.8 K/uL (1.8-8.9); NEUTROPHILS % (AUTO) 78.1 % (38.5-71.5); PLATELET COUNT (AUTO) 208 K/uL (152-348); RED BLOOD CELL COUNT(AUTO) 2.96 MIL/uL (4.06-5.63); WHITE BLOOD COUNT (AUTO) 7.4 K/uL (3.6-10.2)
[2018-01-08] MEDS: BLOOD SUGAR DIAGNOSTIC 1 EACH STRIP VI SCH ×4 (06:20→20:37)
[2018-01-08 06:41] LABS: ALANINE AMINOTRANSFERASE 25 U/L (16-63); ALKALINE PHOSPHATASE 79 U/L (50-136); ASPARTATE AMINOTRANSFERASE 17 U/L (15-37); BILIRUBIN,TOTAL 0.3 mg/dL (0.2-1.0); CARBON DIOXIDE 25 mmol/L (21-32); CHLORIDE 106 mmol/L (98-107); CREATININE 3.3 mg/dL (0.6-1.3); GLUCOSE 139 mg/dL (74-106); MAGNESIUM 1.8 mg/dL (1.8-2.4); PHOSPHOROUS 4.8 mg/dL (2.5-4.9); POTASSIUM 4.3 mmol/L (3.5-5.1); TOTAL PROTEIN, SERUM 5.5 g/dL (6.4-8.2); UREA NITROGEN, BLOOD 32 mg/dL (7-18)
--- NOTE | 2018-01-08 07:05 | NUR ---
RECEIVED REPORT FROM ONSHORE DIVER NURSE, PATIENT IN BED ASLEEP, NO DISTRESS NOTED, BED IN LOW POSITION, SIDE RAILS UP X2. SITTER AT BEDSIDE.
[2018-01-08] MEDS: DIVALPROEX SPRINKLE 125 MG CAP.SPRINK PO SCH ×2 (08:33→16:51)
[2018-01-08] MEDS: LEVETIRACETAM 500 MG TABLET PO SCH ×2 (08:33→16:51)
[2018-01-08] MEDS: GABAPENTIN 300 MG CAPSULE PO SCH ×2 (08:33→16:50)
[2018-01-08] MEDS: LACTOBACILLUS RHAMNOSUS GG 1 EACH CAPSULE PO SCH ×2 (08:33→21:28)
[2018-01-08] MEDS: METOPROLOL TARTRATE 50 MG TABLET PO SCH ×2 (08:34→21:29)
[2018-01-08] MEDS: AMLODIPINE 5 MG TABLET PO SCH ×2 (08:34→21:29)
[2018-01-08] MEDS ORDERED: FUROSEMIDE 20 MG TABLET PO SCH (09:00)
[2018-01-08 12:41] VITALS: BP 143/66
--- NOTE | 2018-01-08 14:23 | NUR ---
CLINICAL PHARMACY NOTE: VANCOMYCIN PHARMACY TO DOSE Subjective: To continue vanco for this 77 y/o male for recurrent pneumonia Objective: height 165.1 cm weight 92 kg BUN 32 Scr 3.3(not HD yet) wbc 7.4 temp 98.4 Assessment/Plan Patient received vanco 1250mg IVPB x1 on 01/07 at 2054. Due to advanced age & elevated srcr, will dose by fall off level. Will check vanco random level today at 1700. Pharmacist shall review the level when available for further dosing. Will continue to follow up. Addendum: 01/08/18 at 1825 by MARK BAUTISTA RANDOM LEVEL THIS EVENING 20.5 NO VANCOMYCIN TODAY. WILL ORDER ANOTHER RANDOM LEVEL FOR TOMORROW
[2018-01-08 15:12] LABS: ABG BASE EXCESS 0.1 mmol/L; ABG HCO3 25.1 mmol/L; ABG PCO2 42.4 mmHg (35.0-45.0); ABG PO2 83.8 mmHg (75.0-100.0); ABG SITE RIGHT RADIAL; ABG TOTAL HEMOGLOBIN 9.2 G/dL (13.5-18.0); COHb 1.2 % (0.5-1.5); MetHb 0.2 % (0.0-1.5); O2Hb 94.3 % (94.0-97.0); VENT MODE Nasal Cannula
[2018-01-08 16:37] VITALS: BP 137/67
[2018-01-08] MEDS: INSULIN REGULAR, HUMAN 300 UNIT/3 ML VIAL SQ PRN (17:00)
[2018-01-08] MEDS: Z GUARD REMEDY PASTE 57 GM TUBE TOP SCH ×2 (17:02→21:30)
[2018-01-08] MEDS: PIPERACILLIN/TAZOBACTAM/D5W 2.25 G in PREMIXED 1 EACH IV SCH ×2 (17:02→23:38)
--- NOTE | 2018-01-08 18:16 | NUR ---
PATIENT HAS BEEN COOPERATIVE WITH CARE. PATIENT HAS BEEN VERY LETHARGIC, ABG'S WERE PERFORMED (SEE RESULTS IN LABS). CURRENTLY PATIENT IS IN BED, NO DISTRESS NOTED AT THIS TIME, BED IN LOW POSITION, SIDE RAILS UP X2.
--- NOTE | 2018-01-08 19:25 | NUR ---
RECEIVED PT IN BED. ASLEEP BUT WAKES UP INTERMITTENTLY. APPEARS WEAK AND LETHARGIC. SEVERAL FAMILY MEMBER ON BEDSIDE. ON O2 AT 3LPM VIA NC IN PLACE. O2 SAT AT 100%. LUNG SOUND WITH MINIMAL CRACKLES HEARD ON AUSCULTATION. NOT IN ACUTE DISTRESS. IV SITE ON LFA INTACT AND PATENT. FC INTACT AND DRAINING VIA GRAVITY WITH CLEAR YELLOW OUTPUT ON URINARY BAG. SAFETY MEASURE INITIATED AND CALL CLARK WITHIN REACHED.
[2018-01-08 19:30] VITALS: BP 132/63
[2018-01-08] MEDS: MONTELUKAST SODIUM 10 MG TABLET PO SCH (21:28)
[2018-01-08] MEDS: TAMSULOSIN HCL 0.4 MG CAP.SR.24H PO SCH (21:28)
[2018-01-08] MEDS: DOCUSATE SODIUM 100 MG CAPSULE PO SCH (21:28)
[2018-01-09] MEDS: LORAZEPAM 2 MG/1 ML VIAL IV PRN ×4 (00:23→22:44)
[2018-01-09] MEDS: IPRATROPIUM BROMIDE 0.5 MG/2.5 ML NEBU NEB SCH ×4 (00:59→18:25)
[2018-01-09] MEDS: ALBUTEROL SULFATE 2.5 MG/3 ML NEBU NEB SCH ×4 (00:59→18:25)
[2018-01-09] MEDS: ACETAMINOPHEN 325 MG TABLET PO PRN (01:58)
[2018-01-09] MEDS: OLANZAPINE ZYDIS 5 MG TAB.RAPDIS PO PRN (02:58)
[2018-01-09] MEDS: MORPHINE SULFATE 4 MG/1 ML DISP.SYRIN IV PRN (02:59)
[2018-01-09] MEDS: PIPERACILLIN/TAZOBACTAM/D5W 2.25 G in PREMIXED 1 EACH IV SCH ×3 (05:42→17:47)
--- NOTE | 2018-01-09 06:10 | NUR ---
ALERT, BUT CONFUSED AND DISORIENTED. RESTLESS AND AGITATED FREQUENTLY. PRN LORAZEPAM, PRN ZYPREXA GIVEN WITH LITTLE EFFECT. 1:1 SITTER ON SITE WELL PT SON JOLYNN. PT REORIENTED AND DISTRACTION PROVIDED WITH MINIMAL EFFECT. NOT IN ACUTE DISTRESS. ON O2 AT 3LPM VIA NC IN PLACE. O2 SAT AT 97%. IV SITE ON LFA INTACT AND PATENT. FC INTACT AND DRAINING VIA GRAVITY. SAFETY MEASURE MAINTAINED AND CALL CLARK WITHIN REACHED.
[2018-01-09] MEDS: PANTOPRAZOLE SODIUM 40 MG TABLET.DR PO SCH (06:25)
[2018-01-09] MEDS: BLOOD SUGAR DIAGNOSTIC 1 EACH STRIP VI SCH ×4 (06:30→20:49)
[2018-01-09 06:38] LABS: BASOPHILS % (AUTO) 0.6 % (0.0-2.0); EOSINOPHILS # (AUTO) 0.2 K/uL (0.0-0.7); EOSINOPHILS % (AUTO) 2.9 % (0.0-7.0); HEMATOCRIT 26.2 % (36.7-47.1); HEMOGLOBIN 8.8 g/dL (12.5-16.3); LYMPHOCYTES # (AUTO) 1.1 K/uL (20.0-40.0); LYMPHOCYTES % (AUTO) 14.1 % (20.5-51.5); MEAN CORPUSCULAR HEMOGLOBIN 27.7 uug (23.8-33.4); MEAN CORPUSCULAR HGB CONC 34 g/dL (32.5-36.3); MEAN CORPUSCULAR VOLUME 82.7 fL (73.0-96.2); MONOCYTES # (AUTO) 0.9 K/uL (2.0-10.0); MONOCYTES % (AUTO) 10.9 % (0.0-11.0); NEUTROPHILS # (AUTO) 5.6 K/uL (1.8-8.9); NEUTROPHILS % (AUTO) 71.5 % (38.5-71.5); PLATELET COUNT (AUTO) 204 K/uL (152-348); RED BLOOD CELL COUNT(AUTO) 3.16 MIL/uL (4.06-5.63); WHITE BLOOD COUNT (AUTO) 7.8 K/uL (3.6-10.2)
[2018-01-09 06:55] LABS: ALANINE AMINOTRANSFERASE 23 U/L (16-63); ALKALINE PHOSPHATASE 80 U/L (50-136); ASPARTATE AMINOTRANSFERASE 16 U/L (15-37); BILIRUBIN,TOTAL 0.3 mg/dL (0.2-1.0); CARBON DIOXIDE 26 mmol/L (21-32); CHLORIDE 107 mmol/L (98-107); CREATININE 3.4 mg/dL (0.6-1.3); GLUCOSE 119 mg/dL (74-106); MAGNESIUM 1.7 mg/dL (1.8-2.4); PHOSPHOROUS 4.6 mg/dL (2.5-4.9); POTASSIUM 4.1 mmol/L (3.5-5.1); TOTAL PROTEIN, SERUM 6.1 g/dL (6.4-8.2); UREA NITROGEN, BLOOD 30 mg/dL (7-18)
--- NOTE | 2018-01-09 07:10 | NUR ---
RECEIVED REPORT FROM SCREW MACHINE SET UP OPERATOR NURSE, PATIENT IN BED MUMBLING UNCOMPREHENSIBLE WORDS AND TRYING TO PULL AT LINES AND REMOVING OXYGEN. BED IN LOW POSITION, SIDE RAILS UP X2, SITTER AT BEDSIDE.
[2018-01-09 07:26] VITALS: BP 163/76
[2018-01-09] MEDS: DIVALPROEX SPRINKLE 125 MG CAP.SPRINK PO SCH ×2 (08:00→17:47)
[2018-01-09] MEDS: LACTOBACILLUS RHAMNOSUS GG 1 EACH CAPSULE PO SCH ×2 (08:00→20:27)
[2018-01-09] MEDS: AMLODIPINE 5 MG TABLET PO SCH ×2 (08:00→20:27)
[2018-01-09] MEDS: METOPROLOL TARTRATE 50 MG TABLET PO SCH ×2 (08:00→20:27)
[2018-01-09] MEDS: GABAPENTIN 300 MG CAPSULE PO SCH ×2 (08:00→17:47)
[2018-01-09] MEDS: LEVETIRACETAM 500 MG TABLET PO SCH ×2 (08:01→17:47)
[2018-01-09] MEDS: Z GUARD REMEDY PASTE 57 GM TUBE TOP SCH ×2 (08:01→20:28)
[2018-01-09 11:31] VITALS: BP 126/95
[2018-01-09] MEDS: INSULIN REGULAR, HUMAN 300 UNIT/3 ML VIAL SQ PRN ×2 (11:57→20:50)
[2018-01-09] MEDS ORDERED: MAGNESIUM SULFATE/D5W 100 ML IV SCH (12:15)
[2018-01-09 16:00] VITALS: BP 127/59
--- NOTE | 2018-01-09 16:14 | NUR ---
CLINICAL PHARMACY NOTE: VANCOMYCIN PHARMACY TO DOSE Subjective: To continue vanco for this 77 y/o male for recurrent pneumonia Objective: height 165.1 cm weight 92 kg BUN 30 Scr 3.4(not HD yet) wbc 7.8 temp 97.4 Random @1515 14.8 Assessment/Plan Patient received vanco 1250mg IVPB x1 on 01/07 at 2054. Due to advanced age & elevated srcr, will dose by fall off level. Based on random level, will dose another 1250mg x 1 tonight at 2099 and order next random with am labs on 01/11 based on previous levels and Scr. Will follow
--- NOTE | 2018-01-09 18:25 | NUR ---
PATIENT HAS AGITATED IN THE EARLY PART OF THE DAY AND CONTINUED TO TRY TO TAKE OUT LINES AND HUIZAR CATHETER. FAMILY MEMBERS WERE NOT ABLE TO RELAX PATIENT, ATIVAN WAS ADMINISTERED, AND PATIENT DOES NOT APPEAR TO BE IN ANY DISTRESS AT THIS TIME. CURRENTLY PATIENT IS IN BED, BED IN LOW POSITION, SIDE RAILS UP X2, SITTER AT BEDSIDE.
--- NOTE | 2018-01-09 19:30 | NUR ---
Patient stable at start of shift. No acute distress noted. Family currently at the bedside. Pertinent assessment completed. 1:1 sitter at the bedside. Patient is confused & unable to make needs known. Noted with Left forearm IV 20G flushing well. No s/s of infiltration or redness at IV site. BP elevated at start of shift. Will re assess through shift. On 3L o2 via NC. Bed in low position, locked. Call light within reach. Will continue to monitor through shift.
[2018-01-09 20:20] VITALS: BP 164/73
[2018-01-09] MEDS: TAMSULOSIN HCL 0.4 MG CAP.SR.24H PO SCH (20:27)
[2018-01-09] MEDS: DOCUSATE SODIUM 100 MG CAPSULE PO SCH (20:27)
[2018-01-09] MEDS: MONTELUKAST SODIUM 10 MG TABLET PO SCH (20:27)
[2018-01-09] MEDS ORDERED: VANCOMYCIN IV 1,250 MG in IV DEXTROSE 5% 500 ML IV ONE (21:00)
[2018-01-10] MEDS: PIPERACILLIN/TAZOBACTAM/D5W 2.25 G in PREMIXED 1 EACH IV SCH ×5 (00:46→23:04)
[2018-01-10] MEDS: ALBUTEROL SULFATE 2.5 MG/3 ML NEBU NEB SCH ×4 (01:10→19:53)
[2018-01-10] MEDS: IPRATROPIUM BROMIDE 0.5 MG/2.5 ML NEBU NEB SCH ×4 (01:10→19:53)
[2018-01-10 05:56] VITALS: BP 154/60
[2018-01-10] MEDS: PANTOPRAZOLE SODIUM 40 MG TABLET.DR PO SCH (06:17)
--- NOTE | 2018-01-10 06:26 | NUR ---
Patient stable through shift. Slept well after med administration. No acute distress noted. All needs attended to. Medications administered as ordered per MD. No s/s of hyperglycemia or hypoglycemia noted. BS this AM at 95, no insulin coverage needed. Patient kept clean & dry. Diaper changed per soiling. [place] catheter below the level of the bladder & off the floor. Urine flowing through. Family stayed at bedside through out the night. safety measures implemented. Call light within reach. Will endorse to day shift RN.
[2018-01-10] MEDS: BLOOD SUGAR DIAGNOSTIC 1 EACH STRIP VI SCH ×4 (06:32→20:57)
[2018-01-10] MEDS: LEVETIRACETAM 500 MG TABLET PO SCH ×2 (09:24→16:09)
[2018-01-10] MEDS: METOPROLOL TARTRATE 50 MG TABLET PO SCH ×2 (09:25→20:38)
[2018-01-10] MEDS: AMLODIPINE 5 MG TABLET PO SCH ×2 (09:25→20:37)
[2018-01-10] MEDS: DIVALPROEX SPRINKLE 125 MG CAP.SPRINK PO SCH ×2 (09:25→16:09)
[2018-01-10] MEDS: LACTOBACILLUS RHAMNOSUS GG 1 EACH CAPSULE PO SCH ×2 (09:25→20:38)
[2018-01-10] MEDS: GABAPENTIN 300 MG CAPSULE PO SCH ×2 (09:25→16:09)
[2018-01-10] MEDS: Z GUARD REMEDY PASTE 57 GM TUBE TOP SCH ×2 (09:26→20:38)
--- NOTE | 2018-01-10 10:10 | NUR ---
PT IS RESISTING PHYSICAL THERAPY, CAN NOT FOLLOW DIRECTIONS AT THIS TIME, LETHARGIC, LASHING OUT, AND AOX1 WITH CONFUSION. CONTINUE TO MONITOR.
--- NOTE | 2018-01-10 10:50 | NUR ---
PT HAS REDNESS AND EXCORIATION ON HIS RECTAL AREA, AREA IS RED AND OPEN. HIS LEFT INNER THIGH ALSO IS OPEN AND HAS EXCORIATION. PICTURES WHERE TAKEN AND PLACED IN CHART. PT SKIN WAS CLEANED AND Z GUARD APPLIED.
[2018-01-10 11:27] VITALS: BP 140/84
[2018-01-10] MEDS: INSULIN REGULAR, HUMAN 300 UNIT/3 ML VIAL SQ PRN ×3 (11:32→21:00)
--- NOTE | 2018-01-10 11:37 | NUR ---
CLINICAL PHARMACY NOTE: VANCOMYCIN PHARMACY TO DOSE Subjective: To continue vanco for this 77 y/o male for recurrent pneumonia Objective: height 165.1 cm weight 92 kg BUN 30 (01/09) Scr 3.4(not HD yet ON 01/09) wbc 7.8 (01/09) temp 98.4 Assessment/Plan Patient received vanco 1250mg IVPB x1 on 01/07 at 5. Due to advanced age & elevated srcr, will dose by fall off level. Based on random level, will dose another 1250mg x 1 tonight at 2100 and order next random with am labs on 01/11 based on previous levels and Scr. Will follow
[2018-01-10 15:46] VITALS: BP 153/67
--- NOTE | 2018-01-10 18:48 | NUR ---
PT OBSERVED IN BED TOSSING AND TURNING, CONFUSED, RESTLESS, HYPERVERBAL BUT NOT COMBATIVE. PT HAS FAMILY AND FRIENDS AT THE BEDSIDE. COMPLIANT WITH MEDICATION AND ALLOWS CARE. PT BED AT LOWEST LOCKED POSITION. PT HAS TWO IV SITES L AND R FOREARM # 22 GAUGE BOTH PATENT. PT SHOW NO SIGNS OF RESPIRATORY DISTRESS AT THIS TIME, PT ON 3 L OF O2 NC SAT 99%. CONTINUE TO MONITOR.
[2018-01-10 19:27] VITALS: BP 163/84
--- NOTE | 2018-01-10 19:30 | NUR ---
Received pt's awake for himself only,combative during getting care,pt had large BM at this time,normal stool.safety render 1:1 sitter at the bedside for safety.bed alarm's on.RT came and gave HHN Rx to pt;RT's able to speak Citizen [place];pt's cooperative with him.continued monitoring to pt.
[2018-01-10] MEDS: OLANZAPINE ZYDIS 5 MG TAB.RAPDIS PO PRN (20:37)
[2018-01-10] MEDS: ACETAMINOPHEN 325 MG TABLET PO PRN (20:37)
[2018-01-10] MEDS: TAMSULOSIN HCL 0.4 MG CAP.SR.24H PO SCH (20:37)
[2018-01-10] MEDS: DOCUSATE SODIUM 100 MG CAPSULE PO SCH (20:38)
[2018-01-10] MEDS: MONTELUKAST SODIUM 10 MG TABLET PO SCH (20:38)
--- NOTE | 2018-01-10 21:30 | NUR ---
Pt's calm at this time,unlabored breathing noted.On O2 NC 2LPM;no SOB noted.1;1 sitter at the bedside.Pt's daughter's here and stayed with pt;pt's calm while family's here.Endorsed to Zayda/RN to continue care.safety render.
[2018-01-10] MEDS ORDERED: CLONIDINE-TTS 1 PATCH TD SCH (23:00)
[2018-01-10] MEDS ORDERED: CLONIDINE-TTS 1 PATCH TD ONE (23:52)
[2018-01-11] VITALS (8 sets, daily range): BP systolic 147–189; BP diastolic 76–96
[2018-01-11] MEDS: LORAZEPAM 2 MG/1 ML VIAL IV PRN (00:12)
[2018-01-11] MEDS: IPRATROPIUM BROMIDE 0.5 MG/2.5 ML NEBU NEB SCH ×5 (01:33→19:31)
[2018-01-11] MEDS: ALBUTEROL SULFATE 2.5 MG/3 ML NEBU NEB SCH ×5 (01:34→19:31)
[2018-01-11] MEDS: ACETAMINOPHEN 325 MG TABLET PO PRN ×3 (03:29→15:05)
[2018-01-11] MEDS: NITROGLYCERIN OINT 1 GM PACKET TP PRN (05:19)
[2018-01-11] MEDS: PIPERACILLIN/TAZOBACTAM/D5W 2.25 G in PREMIXED 1 EACH IV SCH ×2 (05:20→12:15)
[2018-01-11] MEDS: PANTOPRAZOLE SODIUM 40 MG TABLET.DR PO SCH (05:52)
--- NOTE | 2018-01-11 06:00 | NUR ---
MITTENS RESTRAINT STARTED,PT PULLED OUT HUIZAR.
[2018-01-11 06:37] LABS: BASOPHILS % (AUTO) 0.8 % (0.0-2.0); EOSINOPHILS # (AUTO) 0.3 K/uL (0.0-0.7); EOSINOPHILS % (AUTO) 5.5 % (0.0-7.0); HEMATOCRIT 28.3 % (36.7-47.1); HEMOGLOBIN 9.5 g/dL (12.5-16.3); LYMPHOCYTES # (AUTO) 1.2 K/uL (20.0-40.0); LYMPHOCYTES % (AUTO) 22.6 % (20.5-51.5); MEAN CORPUSCULAR HEMOGLOBIN 27.3 uug (23.8-33.4); MEAN CORPUSCULAR HGB CONC 34 g/dL (32.5-36.3); MEAN CORPUSCULAR VOLUME 81.4 fL (73.0-96.2); MONOCYTES # (AUTO) 0.7 K/uL (2.0-10.0); MONOCYTES % (AUTO) 13.6 % (0.0-11.0); NEUTROPHILS % (AUTO) 57.5 % (38.5-71.5); PLATELET COUNT (AUTO) 240 K/uL (152-348); RED BLOOD CELL COUNT(AUTO) 3.48 MIL/uL (4.06-5.63); WHITE BLOOD COUNT (AUTO) 5.3 K/uL (3.6-10.2)
[2018-01-11 06:43] LABS: ALANINE AMINOTRANSFERASE 24 U/L (16-63); ALKALINE PHOSPHATASE 76 U/L (50-136); ASPARTATE AMINOTRANSFERASE 18 U/L (15-37); BILIRUBIN,TOTAL 0.3 mg/dL (0.2-1.0); CARBON DIOXIDE 26 mmol/L (21-32); CHLORIDE 106 mmol/L (98-107); CREATINE KINASE, TOTAL 89 U/L (39-308); CREATININE 3.1 mg/dL (0.6-1.3); GLUCOSE 134 mg/dL (74-106); MAGNESIUM 1.6 mg/dL (1.8-2.4); PHOSPHOROUS 3.6 mg/dL (2.5-4.9); POTASSIUM 3.8 mmol/L (3.5-5.1); TOTAL PROTEIN, SERUM 6.7 g/dL (6.4-8.2); UREA NITROGEN, BLOOD 21 mg/dL (7-18); VANCOMYCIN,RANDOM 19.5 ug/mL (18.0-26.0)
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
[2018-01-11] MEDS: BLOOD SUGAR DIAGNOSTIC 1 EACH STRIP VI SCH ×4 (07:49→20:42)
--- NOTE | 2018-01-11 08:00 | NUR ---
AWAKE FORGETFUL CONFUSED BUT ABLE TO FOLLOW SOME SIMPLE DIRECTION AT THIS TIME ON ASPIRATION AND FALL PRECAUTION BED ALARM ON AND CALL LIGHT IN REACH SITTER 1:1 AT BEDSIDE FOR SAFETY
[2018-01-11] MEDS: DIVALPROEX SPRINKLE 125 MG CAP.SPRINK PO SCH ×2 (08:29→17:39)
[2018-01-11] MEDS: GABAPENTIN 300 MG CAPSULE PO SCH ×2 (08:29→17:39)
[2018-01-11] MEDS: LACTOBACILLUS RHAMNOSUS GG 1 EACH CAPSULE PO SCH ×2 (08:29→20:41)
[2018-01-11] MEDS: METOPROLOL TARTRATE 50 MG TABLET PO SCH ×2 (08:30→20:41)
[2018-01-11] MEDS: OLANZAPINE ZYDIS 5 MG TAB.RAPDIS PO PRN (08:30)
[2018-01-11] MEDS: LEVETIRACETAM 500 MG TABLET PO SCH ×2 (08:30→17:39)
[2018-01-11] MEDS: AMLODIPINE 5 MG TABLET PO SCH ×2 (08:30→20:40)
[2018-01-11] MEDS: Z GUARD REMEDY PASTE 57 GM TUBE TOP SCH ×2 (08:31→20:42)
[2018-01-11] MEDS: INSULIN REGULAR, HUMAN 300 UNIT/3 ML VIAL SQ PRN ×2 (08:32→12:21)
[2018-01-11] MEDS ORDERED: MAGNESIUM SULFATE/D5W 100 ML IV SCH (10:00)
[2018-01-11] MEDS ORDERED: CLONIDINE HCL 0.1 MG TABLET PO PRN (10:00)
--- NOTE | 2018-01-11 10:00 | NUR ---
[employer] OPERATOR ZAC ZUNIGA SEEN PATIENT AND LAB THIS AM NEW ORDER IN CHART MAG IVPB GIVEN ORDER
--- NOTE | 2018-01-11 11:30 | NUR ---
CLINICAL PHARMACY NOTE: VANCOMYCIN PHARMACY TO DOSE Subjective: To continue vanco for this 77 y/o male for recurrent pneumonia Objective: height 165.1 cm weight 92 kg BUN 21 Scr 3.1(not HD yet) wbc 5.3 temp 97.7 Vanco random level: 195. (with am labs- post vanco 1250mg IVPB x1 on 01/07 at 2054) Assessment/Plan Due to advanced age & elevated srcr, will dose by fall off level. Based on random level, will dose another 1250mg x 1 tonight at 2200 and order next random with am labs on 01/13 based on previous levels and Scr. Will follow
[2018-01-11] MEDS: CEPHALEXIN MONOHYDRATE 250 MG CAPSULE PO SCH ×2 (17:38→21:11)
--- NOTE | 2018-01-11 18:00 | NUR ---
STABLE CONDITION NO AGITATION THIS PM RESTING WELL NO ACUTE DISTRESS PAIN UNDER CONTROL SAFETY MEASURE PROVIDED SITTER 1:1 AT BEDSIDE
[2018-01-11] MEDS: MONTELUKAST SODIUM 10 MG TABLET PO SCH (20:41)
[2018-01-11] MEDS: DOCUSATE SODIUM 100 MG CAPSULE PO SCH (20:41)
[2018-01-11] MEDS: TAMSULOSIN HCL 0.4 MG CAP.SR.24H PO SCH (20:41)
[2018-01-11] MEDS ORDERED: VANCOMYCIN IV 1,250 MG in IV DEXTROSE 5% 500 ML IV ONE (22:00)
[2018-01-12] VITALS (7 sets, daily range): BP systolic 123–186; BP diastolic 65–93
[2018-01-12] MEDS: ALBUTEROL SULFATE 2.5 MG/3 ML NEBU NEB SCH ×4 (00:31→19:22)
[2018-01-12] MEDS: IPRATROPIUM BROMIDE 0.5 MG/2.5 ML NEBU NEB SCH ×4 (00:31→19:21)
[2018-01-12] MEDS: LORAZEPAM 2 MG/1 ML VIAL IV PRN ×3 (02:37→14:36)
[2018-01-12] MEDS: ACETAMINOPHEN 325 MG TABLET PO PRN (04:10)
[2018-01-12] MEDS: CEPHALEXIN MONOHYDRATE 250 MG CAPSULE PO SCH ×3 (06:06→21:07)
[2018-01-12] MEDS: PANTOPRAZOLE SODIUM 40 MG TABLET.DR PO SCH (06:06)
[2018-01-12] MEDS: BLOOD SUGAR DIAGNOSTIC 1 EACH STRIP VI SCH ×4 (06:33→20:53)
--- NOTE | 2018-01-12 06:56 | NUR ---
RESTLESS AT TIMES, GIVEN ATIVAN X1 ORDERED, 1:1 SITTER AT BEDSIDE, FAMILY AT BEDSIDE. CONTINUE ON MITTENS RESTRAINED, MONITORED PER PROTOCOL. SAFETY MEASURES MAINTAINED.
[2018-01-12 07:07] LABS: BASOPHILS % (AUTO) 0.9 % (0.0-2.0); EOSINOPHILS # (AUTO) 0.3 K/uL (0.0-0.7); EOSINOPHILS % (AUTO) 6.1 % (0.0-7.0); HEMATOCRIT 29.2 % (36.7-47.1); HEMOGLOBIN 9.8 g/dL (12.5-16.3); LYMPHOCYTES # (AUTO) 1.2 K/uL (20.0-40.0); LYMPHOCYTES % (AUTO) 25.3 % (20.5-51.5); MEAN CORPUSCULAR HEMOGLOBIN 27.1 uug (23.8-33.4); MEAN CORPUSCULAR HGB CONC 34 g/dL (32.5-36.3); MEAN CORPUSCULAR VOLUME 81.1 fL (73.0-96.2); MONOCYTES # (AUTO) 0.5 K/uL (2.0-10.0); MONOCYTES % (AUTO) 10.9 % (0.0-11.0); NEUTROPHILS # (AUTO) 2.6 K/uL (1.8-8.9); NEUTROPHILS % (AUTO) 56.8 % (38.5-71.5); PLATELET COUNT (AUTO) 267 K/uL (152-348); WHITE BLOOD COUNT (AUTO) 4.7 K/uL (3.6-10.2)
[2018-01-12 07:20] LABS: ALANINE AMINOTRANSFERASE 22 U/L (16-63); ALKALINE PHOSPHATASE 81 U/L (50-136); ASPARTATE AMINOTRANSFERASE 18 U/L (15-37); BILIRUBIN,TOTAL 0.2 mg/dL (0.2-1.0); CARBON DIOXIDE 26 mmol/L (21-32); CHLORIDE 108 mmol/L (98-107); GLUCOSE 149 mg/dL (74-106); MAGNESIUM 1.7 mg/dL (1.8-2.4); PHOSPHOROUS 3.1 mg/dL (2.5-4.9); POTASSIUM 3.9 mmol/L (3.5-5.1); TOTAL PROTEIN, SERUM 6.8 g/dL (6.4-8.2); UREA NITROGEN, BLOOD 21 mg/dL (7-18)
[2018-01-12] MEDS: GABAPENTIN 300 MG CAPSULE PO SCH ×3 (08:10→17:26)
[2018-01-12] MEDS: METOPROLOL TARTRATE 50 MG TABLET PO SCH ×2 (08:10→20:20)
[2018-01-12] MEDS: AMLODIPINE 5 MG TABLET PO SCH ×2 (08:10→20:19)
[2018-01-12] MEDS: LACTOBACILLUS RHAMNOSUS GG 1 EACH CAPSULE PO SCH ×3 (08:10→20:19)
[2018-01-12] MEDS: DIVALPROEX SPRINKLE 125 MG CAP.SPRINK PO SCH ×3 (08:10→17:26)
[2018-01-12] MEDS: LEVETIRACETAM 500 MG TABLET PO SCH ×3 (08:10→17:25)
--- NOTE | 2018-01-12 08:10 | NUR ---
Rec'd pt in bed awake, restless. Ativan 1mg IV push given as ordered for agitation and anxiety. Bilateral hand mittens in place as ordered. 1:1 sitter at bedside. Pt refusing to eat breakfast. Noted with behavior of spitting out food and striking out at staff. VS stable. Unable to redirect pt due to confusion. Will continue to monitor.
[2018-01-12] MEDS: Z GUARD REMEDY PASTE 57 GM TUBE TOP SCH ×2 (08:11→20:21)
[2018-01-12] MEDS: OLANZAPINE ZYDIS 5 MG TAB.RAPDIS PO PRN (08:19)
[2018-01-12] MEDS: INSULIN REGULAR, HUMAN 300 UNIT/3 ML VIAL SQ PRN ×2 (08:30→20:52)
[2018-01-12 10:11] LABS: A/G RATIO 0.7 (0.7-1.7); ALBUMIN 2.2 g/dL (2.9-4.4); ALPHA-1-GLOBULIN 0.4 g/dL (0.0-0.4); ALPHA-2-GLOBULIN 1.1 g/dL (0.4-1.0); BETA GLOBULIN 1.1 g/dL (0.7-1.3); GAMMA GLOBULIN 0.7 g/dL (0.4-1.8); GLOBULIN, TOTAL 3.3 g/dL (2.2-3.9); M-SPIKE Not Observed g/dL (Not Observed)
[2018-01-12] MEDS ORDERED: MAGNESIUM SULFATE/D5W 100 ML IV SCH (11:15)
--- NOTE | 2018-01-12 12:40 | NUR ---
Spoke with Dr. Espinosa and relayed pt's behavioral manifestations. Pt continues to be combative during care. Continues to require the na soft hand mittens. New order to increase Depakote Sprinkle 250mg BID to TID and Depakote level on 01/14. Noted and carried out. Pt and granddaughter at bedside made aware.
--- NOTE | 2018-01-12 19:00 | NUR ---
Pt in bed awake. No s/s of acute respiratory distress noted. 1:1 sitter and daughter at bedside. Continues to have episodes of restlessness and agitation. Will endorse to incoming nurse.
--- NOTE | 2018-01-12 19:30 | NUR ---
RECEIVED REPORT FROM AM NURSE. PT IN BED, CONTINUE ON BILATERAL MITTENS. RESTLESS AT TIMES. FAMILY AT BESIDE, 1:1 SITTER AT BEDSIDE FOR SAFETY. SAFETY OBSERVED.
[2018-01-12] MEDS: DOCUSATE SODIUM 100 MG CAPSULE PO SCH (20:19)
[2018-01-12] MEDS: TAMSULOSIN HCL 0.4 MG CAP.SR.24H PO SCH (20:19)
[2018-01-12] MEDS: MONTELUKAST SODIUM 10 MG TABLET PO SCH (20:19)
--- NOTE | 2018-01-12 21:00 | NUR ---
RESTRAINT OFF AT THIS TIME, PT SLEEPING, NO AGITATION, FAMILY AT BEDSIDE, 1:1 SITTER FOR SAFETY.
[2018-01-13] MEDS: ALBUTEROL SULFATE 2.5 MG/3 ML NEBU NEB SCH ×4 (01:34→19:26)
[2018-01-13] MEDS: IPRATROPIUM BROMIDE 0.5 MG/2.5 ML NEBU NEB SCH ×3 (01:34→12:59)
[2018-01-13] MEDS: ACETAMINOPHEN 325 MG TABLET PO PRN ×2 (02:44→13:30)
[2018-01-13 05:21] VITALS: BP 150/68
[2018-01-13] MEDS: PANTOPRAZOLE SODIUM 40 MG TABLET.DR PO SCH (06:03)
[2018-01-13] MEDS: CEPHALEXIN MONOHYDRATE 250 MG CAPSULE PO SCH ×3 (06:04→21:08)
--- NOTE | 2018-01-13 06:11 | NUR ---
CONTINUE WITH 1:1 SITTER FOR SAFETY. FAMILY AT BEDSIDE. BILATERAL MITTENS OFF, PT WAS QUIET DURING SHIFT, SLEEPING MOSTLY. PO MEDS TOLERATED WITH APPLE SAUCE. NO ACUTE SIGNS OF DISTRESS AT THIS TIME.
[2018-01-13] MEDS: BLOOD SUGAR DIAGNOSTIC 1 EACH STRIP VI SCH ×4 (06:38→20:55)
[2018-01-13 07:18] LABS: BASOPHILS % (AUTO) 0.8 % (0.0-2.0); EOSINOPHILS # (AUTO) 0.2 K/uL (0.0-0.7); EOSINOPHILS % (AUTO) 3.8 % (0.0-7.0); HEMATOCRIT 26.5 % (36.7-47.1); HEMOGLOBIN 8.8 g/dL (12.5-16.3); LYMPHOCYTES # (AUTO) 1.4 K/uL (20.0-40.0); LYMPHOCYTES % (AUTO) 31.7 % (20.5-51.5); MEAN CORPUSCULAR HEMOGLOBIN 26.6 uug (23.8-33.4); MEAN CORPUSCULAR HGB CONC 33 g/dL (32.5-36.3); MEAN CORPUSCULAR VOLUME 80.6 fL (73.0-96.2); MONOCYTES # (AUTO) 0.5 K/uL (2.0-10.0); MONOCYTES % (AUTO) 11.9 % (0.0-11.0); NEUTROPHILS # (AUTO) 2.2 K/uL (1.8-8.9); NEUTROPHILS % (AUTO) 51.8 % (38.5-71.5); PLATELET COUNT (AUTO) 263 K/uL (152-348); RED BLOOD CELL COUNT(AUTO) 3.29 MIL/uL (4.06-5.63); WHITE BLOOD COUNT (AUTO) 4.3 K/uL (3.6-10.2)
[2018-01-13 07:44] LABS: ALANINE AMINOTRANSFERASE 18 U/L (16-63); ALKALINE PHOSPHATASE 70 U/L (50-136); ASPARTATE AMINOTRANSFERASE 13 U/L (15-37); BILIRUBIN,TOTAL 0.2 mg/dL (0.2-1.0); CARBON DIOXIDE 25 mmol/L (21-32); CHLORIDE 110 mmol/L (98-107); CREATININE 2.8 mg/dL (0.6-1.3); GLUCOSE 143 mg/dL (74-106); MAGNESIUM 1.7 mg/dL (1.8-2.4); PHOSPHOROUS 3.5 mg/dL (2.5-4.9); POTASSIUM 3.7 mmol/L (3.5-5.1); TOTAL PROTEIN, SERUM 6.1 g/dL (6.4-8.2); UREA NITROGEN, BLOOD 20 mg/dL (7-18)
[2018-01-13 08:09] VITALS: BP 119/65
[2018-01-13] MEDS: INSULIN REGULAR, HUMAN 300 UNIT/3 ML VIAL SQ PRN ×3 (08:18→21:01)
[2018-01-13] MEDS: Z GUARD REMEDY PASTE 57 GM TUBE TOP SCH ×2 (09:00→21:01)
[2018-01-13] MEDS: LACTOBACILLUS RHAMNOSUS GG 1 EACH CAPSULE PO SCH ×2 (09:59→20:43)
[2018-01-13] MEDS: LEVETIRACETAM 500 MG TABLET PO SCH ×2 (09:59→17:26)
[2018-01-13] MEDS: DIVALPROEX SPRINKLE 125 MG CAP.SPRINK PO SCH ×3 (09:59→17:26)
[2018-01-13] MEDS: METOPROLOL TARTRATE 50 MG TABLET PO SCH ×2 (10:00→20:44)
[2018-01-13] MEDS: GABAPENTIN 300 MG CAPSULE PO SCH ×2 (10:01→17:26)
[2018-01-13] MEDS: AMLODIPINE 5 MG TABLET PO SCH ×2 (10:01→20:47)
[2018-01-13 12:30] VITALS: BP 177/77
[2018-01-13 14:27] VITALS: BP 144/73
--- NOTE | 2018-01-13 17:18 | NUR ---
Pt was changed, a bit combative but able to change diaper and give a bed bath. Pt is awake with confusion noted
[2018-01-13 17:25] VITALS: BP 129/78
--- NOTE | 2018-01-13 19:05 | NUR ---
End of shift notes: Pt slept most of the day. Had three BM's, pt is confused, compliant with medications. Restraints were off throughout the day. Pt is under no immediate distress, discomfort, or SOB. Sitter 1:1 has been at bedside for safety. Bed at lowest position for safety.
--- NOTE | 2018-01-13 20:00 | NUR ---
RECEIVED PATIENT AWAKE IN BED, HE'S AAOX1 AND VERY CONFUSED. NO S/S OF PAIN OR DISTRESS , NO FEVER OR SOB NOTED ON ASSESSMENT. SAFETY AND COMFORT MEASURES IN PLACE, SITTER AT BEDSIDE WITH CLOSE MONITORING
[2018-01-13] MEDS: MONTELUKAST SODIUM 10 MG TABLET PO SCH (20:43)
[2018-01-13] MEDS: DOCUSATE SODIUM 100 MG CAPSULE PO SCH (20:43)
[2018-01-13] MEDS: TAMSULOSIN HCL 0.4 MG CAP.SR.24H PO SCH (20:43)
[2018-01-14] MEDS: IPRATROPIUM BROMIDE 0.5 MG/2.5 ML NEBU NEB SCH ×4 (03:57→18:36)
[2018-01-14] MEDS: ALBUTEROL SULFATE 2.5 MG/3 ML NEBU NEB SCH ×4 (03:57→18:36)
[2018-01-14] MEDS: ACETAMINOPHEN 325 MG TABLET PO PRN ×2 (04:19→09:27)
[2018-01-14 05:00] VITALS: BP 140/78
[2018-01-14 05:06] LABS: *PEU ALBUMIN, UR 46.2 % (.); *PEU ALPHA-2-GLOBULIN, UR 13.4 % (.); *PEU GAMMA GLOBULIN, UR 11.9 % (.); *PEU PROTEIN, TOTAL, UR 421.6 mg/dL (Not Estab.); *PEUALPHA-1-GLOBULIN, UR 12.8 % (.); *PEUBETA GLOBULIN, UR 15.7 % (.)
--- NOTE | 2018-01-14 05:48 | NUR ---
PATIENT SLEPT ON AND OFF ON THIS SHIFT, HE CONTINUES TO BE CONFUSED. TYLENOL PRN WAS GIVEN X1 WITH EFFECT. NO S/S OF ACUTE DISTRESS OR PAIN NOTED AT THIS TIME. SITTER REMAINS AT BEDSIDE WITH CLOSE MONITORING OF PATIENT, SAFETY MEASURES MAINTAINED AT ALL TIMES
[2018-01-14] MEDS: CEPHALEXIN MONOHYDRATE 250 MG CAPSULE PO SCH (06:24)
[2018-01-14] MEDS: PANTOPRAZOLE SODIUM 40 MG TABLET.DR PO SCH (06:24)
[2018-01-14] MEDS: BLOOD SUGAR DIAGNOSTIC 1 EACH STRIP VI SCH ×3 (06:33→16:39)
--- NOTE | 2018-01-14 07:25 | NUR ---
Received pt in bed awake, alert and oriented to self, no SOB, pain, distress or discomfort noted.Pt was being reposition by two nursing assistance in the room . Granddaughter by bedside. Bed at lowest position for safety and call light within reach assistance.
[2018-01-14] MEDS: INSULIN REGULAR, HUMAN 300 UNIT/3 ML VIAL SQ PRN ×3 (08:25→16:45)
[2018-01-14] MEDS: LEVETIRACETAM 500 MG TABLET PO SCH ×2 (08:26→16:37)
[2018-01-14] MEDS: LACTOBACILLUS RHAMNOSUS GG 1 EACH CAPSULE PO SCH (08:26)
[2018-01-14] MEDS: DIVALPROEX SPRINKLE 125 MG CAP.SPRINK PO SCH ×3 (08:26→16:37)
[2018-01-14] MEDS: AMLODIPINE 5 MG TABLET PO SCH (08:27)
[2018-01-14] MEDS: GABAPENTIN 300 MG CAPSULE PO SCH ×2 (08:27→16:37)
[2018-01-14] MEDS: METOPROLOL TARTRATE 50 MG TABLET PO SCH (08:28)
[2018-01-14] MEDS ORDERED: Z GUARD REMEDY PASTE 57 GM TUBE TOP PRN (08:45)
[2018-01-14] MEDS: Z GUARD REMEDY PASTE 57 GM TUBE TOP SCH (09:00)
--- NOTE | 2018-01-14 10:12 | NUR ---
Pt is noted walking with the assistance of two PTs, granddaughter behind him with a wheelchair as a precaution. Pt is on 3L O2 via NC. Noted pt walk slow but with no immediate s/s of SOB, pain, distress or discomfort.
[2018-01-14 10:59] VITALS: BP 164/75
[2018-01-14 12:03] LABS: BASOPHILS # (AUTO) 0.1 K/uL (0.0-8.0); BASOPHILS % (AUTO) 1.1 % (0.0-2.0); EOSINOPHILS # (AUTO) 0.2 K/uL (0.0-0.7); EOSINOPHILS % (AUTO) 3.4 % (0.0-7.0); HEMATOCRIT 26.9 % (36.7-47.1); LYMPHOCYTES # (AUTO) 1.7 K/uL (20.0-40.0); LYMPHOCYTES % (AUTO) 32.1 % (20.5-51.5); MEAN CORPUSCULAR HEMOGLOBIN 27.1 uug (23.8-33.4); MEAN CORPUSCULAR HGB CONC 33 g/dL (32.5-36.3); MEAN CORPUSCULAR VOLUME 81.2 fL (73.0-96.2); MONOCYTES # (AUTO) 0.8 K/uL (2.0-10.0); MONOCYTES % (AUTO) 14.4 % (0.0-11.0); NEUTROPHILS # (AUTO) 2.6 K/uL (1.8-8.9); PLATELET COUNT (AUTO) 281 K/uL (152-348); RED BLOOD CELL COUNT(AUTO) 3.31 MIL/uL (4.06-5.63); WHITE BLOOD COUNT (AUTO) 5.2 K/uL (3.6-10.2)
[2018-01-14 12:12] LABS: ALANINE AMINOTRANSFERASE 19 U/L (16-63); ALKALINE PHOSPHATASE 70 U/L (50-136); ASPARTATE AMINOTRANSFERASE 16 U/L (15-37); BILIRUBIN,TOTAL 0.2 mg/dL (0.2-1.0); CARBON DIOXIDE 25 mmol/L (21-32); CHLORIDE 110 mmol/L (98-107); CREATININE 2.7 mg/dL (0.6-1.3); GLUCOSE 164 mg/dL (74-106); MAGNESIUM 1.4 mg/dL (1.8-2.4); POTASSIUM 3.5 mmol/L (3.5-5.1); UREA NITROGEN, BLOOD 22 mg/dL (7-18)
[2018-01-14] MEDS ORDERED: DIVA125C PO (13:15)
[2018-01-14] MEDS ORDERED: CLON0.1T14 PO (13:15)
[2018-01-14] MEDS ORDERED: Blood Sugar Diagnostic VI (13:15)
[2018-01-14] MEDS ORDERED: INSU100V28 SQ (13:15)
[2018-01-14] MEDS ORDERED: OLAN5TAB6 PO (13:15)
[2018-01-14] MEDS ORDERED: ALBU2.5V7 NEB (13:15)
[2018-01-14] MEDS ORDERED: ACET325T53 PO (13:15)
[2018-01-14] MEDS ORDERED: CLON1PAT TD (13:15)
[2018-01-14] MEDS ORDERED: PANT40TA2 PO (13:15)
[2018-01-14] MEDS ORDERED: LACT1CAP57 PO (13:15)
[2018-01-14] MEDS ORDERED: IPRA0.2S6 NEB (13:15)
[2018-01-14] MEDS: MAGNESIUM SULFATE/D5W 100 ML IV SCH ×2 (13:50→15:12)
[2018-01-14 15:04] VITALS: BP 145/67
--- NOTE | 2018-01-14 18:43 | NUR ---
Pt is being discharged with orders. Pt has been changed and pictures taken before discharge. Discharge papers and personal belongings signed by two nurses since pt. is unable to sign. Report given to the RN at [facility]. Pt is under no immediate s/s of distress, discomfort, pain or SOB. Noted pt is more alert, talking and able to understand him still noted with confusion. Last breathing treatment being given. Family by bedside and aware of his discharge. No restraints used throughout this shift, no mittens used. 1:1 sitter for safety.
== END 2018-01-14 19:00 | DRG 139 ==
LOC: ER 13:29 → TELE 18:44 → MED 01-07 19:56
PROVIDERS: ADMIT Internal Medicine; ATTEND Internal Medicine
DX: J18.9 Pneumonia, unspecified organism (principal); E43 Unspecified severe protein-calorie malnutrition; G92 Toxic encephalopathy; I50.33 Acute on chronic diastolic (congestive) heart failure; N17.9 Acute kidney failure, unspecified; L03.115 Cellulitis of right lower limb; J44.0 Chronic obstructive pulmonary disease with (acute) lower respiratory infection; E87.1 Hypo-osmolality and hyponatremia; T38.3X1A Poisoning by insulin and oral hypoglycemic [antidiabetic] drugs, accidental (unintentional), initial encounter; I13.0 Hypertensive heart and chronic kidney disease with heart failure and stage 1 through stage 4 chronic kidney disease, or unspecified chronic kidney disease; F03.91 Unspecified dementia, unspecified severity, with behavioral disturbance; E11.649 Type 2 diabetes mellitus with hypoglycemia without coma; Y92.018 Other place in single-family (private) house as the place of occurrence of the external cause; E11.22 Type 2 diabetes mellitus with diabetic chronic kidney disease; I08.2 Rheumatic disorders of both aortic and tricuspid valves; E83.42 Hypomagnesemia; G40.909 Epilepsy, unspecified, not intractable, without status epilepticus; D63.8 Anemia in other chronic diseases classified elsewhere; N28.1 Cyst of kidney, acquired; Z79.4 Long term (current) use of insulin; E66.8 Other obesity; Z71.3 Dietary counseling and surveillance; Z68.29 Body mass index [BMI] 29.0-29.9, adult; Z87.01 Personal history of pneumonia (recurrent); N18.9 Chronic kidney disease, unspecified; Z94.0 Kidney transplant status; K57.30 Diverticulosis of large intestine without perforation or abscess without bleeding; M48.02 Spinal stenosis, cervical region; I70.0 Atherosclerosis of aorta; E04.2 Nontoxic multinodular goiter; E87.5 Hyperkalemia; E83.51 Hypocalcemia; I67.2 Cerebral atherosclerosis; M19.90 Unspecified osteoarthritis, unspecified site; N40.0 Benign prostatic hyperplasia without lower urinary tract symptoms; M48.54XD Collapsed vertebra, not elsewhere classified, thoracic region, subsequent encounter for fracture with routine healing; E83.39 Other disorders of phosphorus metabolism; J98.11 Atelectasis; Z87.891 Personal history of nicotine dependence; Z90.79 Acquired absence of other genital organ(s); Z79.899 Other long term (current) drug therapy; Z79.51 Long term (current) use of inhaled steroids; Z86.011 Personal history of benign neoplasm of the brain; R33.9 Retention of urine, unspecified; R94.02 Abnormal brain scan
CPT/HCPCS: 36415; 36600; 70030-TC; 70450; 71045; 80164; 83605; 83735; 83970; 84100; 84155; 84165; 84166; 84443; 85025; 85730; 87040; 87086; 93005; 94640; 94664; 97110; 97116; 97530; A4663; J0456; J0696; J1815; J1940; J2060; J2270; J2405; J2543; J3370; J3475; J3490; J3590; J7030; J7040; J7050; J7060